=== PATIENT | male | born 1990 | race Caucasian/White ===

== ENCOUNTER 2020-07-30 10:36 | Emergency (ER) | payer SELFPAY ==
--- NOTE | ~2020-07-30 | US_ITS ---
EXAMINATION: US SCROTUM CLINICAL INFORMATION: Pain. Rule out torsion.. COMPARISON: None TECHNIQUE: A sonogram of the scrotum was performed assessing shah-scale appearance and color Doppler flow. Spectral Doppler analysis of the arterial and venous flow were performed in the testes bilaterally. FINDINGS: RIGHT: Right testicle measures 4.6 x 2.3 x 2.9 cm, volume 16 mL. No focal testicular parenchymal lesions are visualized. Spectral Doppler analysis of the arterial and venous flow is normal in the right testis. Right epididymal head is normal in size. No right hydrocele or varicocele is seen. Right epididymal Doppler flow is normal. LEFT: Left testicle measures 4.8 x 2.6 x 3 cm, volume 19 mL. No focal testicular parenchymal lesions are visualized. Spectral Doppler analysis of the arterial and venous flow is normal in the left testis. Left epididymal head is normal in size. No left hydrocele or varicocele is seen. Left epididymal Doppler flow is normal. US/US scrotum doppler IMPRESSION: Normal scrotal ultrasound. No evidence of torsion.
--- NOTE | ~2020-07-30 | US_ITS ---
EXAMINATION: US SCROTUM CLINICAL INFORMATION: Pain. Rule out torsion.. COMPARISON: None TECHNIQUE: A sonogram of the scrotum was performed assessing shah-scale appearance and color Doppler flow. Spectral Doppler analysis of the arterial and venous flow were performed in the testes bilaterally. FINDINGS: RIGHT: Right testicle measures 4.6 x 2.3 x 2.9 cm, volume 16 mL. No focal testicular parenchymal lesions are visualized. Spectral Doppler analysis of the arterial and venous flow is normal in the right testis. Right epididymal head is normal in size. No right hydrocele or varicocele is seen. Right epididymal Doppler flow is normal. LEFT: Left testicle measures 4.8 x 2.6 x 3 cm, volume 19 mL. No focal testicular parenchymal lesions are visualized. Spectral Doppler analysis of the arterial and venous flow is normal in the left testis. Left epididymal head is normal in size. No left hydrocele or varicocele is seen. Left epididymal Doppler flow is normal. US/US scrotum IMPRESSION: Normal scrotal ultrasound. No evidence of torsion.
[2020-07-30 10:43] VITALS: PULSE 97; RESP 16; TEMP 36.1; O2SAT 99; BMI 49.8
[2020-07-30 13:52] LABS: Glucose Urine UA NEG (NEG); Leukocyte Esterase Urine NEG (NEG); Nitrite Urine NEG (NEG); Specific Gravity - Urine >= 1.030 (1.005-1.025); Urine Blood NEG (NEG); Urine Ketones 15 MG/DL (NEG); Urine Protein NEG (NEG-TRACE)
[2020-07-30 13:57] LABS: Appearance Urine CLEAR; Color Urine YELLOW
--- NOTE | 2020-07-30 14:46 | ED_ITS ---
HPI - Male Genitourinary General Chief complaint: Urogenital-Male <ADILIA Kebede - Last Filed: 08/03/20 09:37> Stated complaint: testicle pain <ADILIA Kebede Last Filed: 08/03/20 09:37> Time Seen by Provider: 07/30/20 10:39 <ADILIA Kebede - Last Filed: 08/03/20 09:37> History of Present Illness HPI Narrative: Patient complains of right testicle pain mild for about 7 days, no discharge no burning with urination, no fever no nausea no abdominal pain no flank pain <ADILIA Kebede Last Filed: 08/03/20 09:37> Related Data Home medications: Previous Rx's Medication Instructions Recorded ibuprofen 600 mg PO Q6H PRN #20 tab 07/30/20 <ADILIA Kebede Last Filed: 08/03/20 09:37> Allergies/Adverse reactions: Allergies Allergy/AdvReac Type Severity Reaction Status Date / Time No Known Allergies Allergy Unverified 01/04/20 17:15 [No Known Allergies*] <ADILIA Kebede - Last Filed: 08/03/20 09:37> Review of Systems Review of Systems: Positive for right testicle pain Negatives are no fever no chills no dizziness no weakness no headache no anorexia no chest pain no shortness of breath no abdominal pain no dysuria no discharge no swelling no frequency of urination no flank pain no leg swelling <ADILIA Kebede Last Filed: 08/03/20 09:37> [facility] Past Medical History Source: nursing notes reviewed <ADILIA Kebede Last Filed: 08/03/20 09:37> Medical History: Medical History (Updated 07/31/20 @ 00:01 by Bebo Rios) Hypertension <ADILIA Kebede Last Filed: 08/03/20 09:37> Surgical History: Surgical History (Updated 07/30/20 @ 10:46 by Lucio Vilchis) H/O rhinoplasty <ADILIA Kebede - Last Filed: 08/03/20 09:37> Social History Social History: Social History Advance Directives: No Advance Directives Information Provided: Yes <ADILIA Kebede Last Filed: 08/03/20 09:37> Physical Exam Vital Signs: Vital Signs: Last Vital Signs Temp 97 F 07/30/20 10:43 Pulse 97 07/30/20 10:43 Resp 16 07/30/20 10:43 Pulse Ox 99 07/30/20 10:43 Body Mass Index 49.8 <ADILIA Kebede - Last Filed: 08/03/20 09:37> Vital Signs: Last Vital Signs Temp 97 F 07/30/20 10:43 Pulse 97 07/30/20 10:43 Resp 16 07/30/20 10:43 Pulse Ox 99 07/30/20 10:43 Body Mass Index 49.8 <Geovani Sevilla MD - Last Filed: 08/14/20 08:04> General appearance is no acute distress, cooperative A&O x3 The neck is supple The chest is clear to auscultation bilaterally Heart no murmur Abdomen soft nontender Genital exam there is no discharge there is no testicular swelling there is no skin wound or abscess no redness The right testicle posterior aspect is tender but there is no swelling There are no ulcerations no sores no herpetic lesions no rash of genital area Extremities no edema Skin no other rashes Neuro no focal deficits <ADILIA Kebede - Last Filed: 08/03/20 09:37> Course Course Course Narrative: Scrotal ultrasound did not show any torsion, no evidence of epididymitis no mass and was normal Urinalysis was normal Patient remains well appearing and comfortable throughout visit and is discharged and informed on not sure what the reason is for his pain but it does not appear to be dangerous or emergent and he can follow with urologist and return any time if worse <ADILIA Kebede - Last Filed: 08/03/20 09:37> I have reviewed the chart <Geovani Sevilla MD - Last Filed: 08/14/20 08:04> MDM - Male Genitourinary Lab Data Attestation: I reviewed the patient's lab results. <ADILIA Kebede - Last Filed: 08/03/20 09:37> Labs: Lab Results 07/30/20 07/30/20 Range/Units 13:39 13:39 Urine Color YELLOW Urine Appearance CLEAR Urine pH 6.0 (5.0-8.0) Ur Specific [place] >= 1.030 H (1.005-1.025) Urine Protein NEG (NEG-TRACE) MG/DL Urine Glucose (UA) NEG (NEG) MG/DL Urine Ketones 15 (NEG) MG/DL Urine Blood NEG (NEG) Urine Nitrite NEG (NEG) Ur Leukocyte Esterase NEG (NEG) Chlam trachomat DNA PCR NOT DETECTED (Not Detect.) N.gonorrhoeae DNA (PCR) NOT DETECTED (Not Detect.) <ADILIA Kebede - Last Filed: 08/03/20 09:37> Lab Results 07/30/20 07/30/20 Range/Units 13:39 13:39 Urine Color YELLOW Urine Appearance CLEAR Urine pH 6.0 (5.0-8.0) Ur Specific [place] >= 1.030 H (1.005-1.025) Urine Protein NEG (NEG-TRACE) MG/DL Urine Glucose (UA) NEG (NEG) MG/DL Urine Ketones 15 (NEG) MG/DL Urine Blood NEG (NEG) Urine Nitrite NEG (NEG) Ur Leukocyte Esterase NEG (NEG) Chlam trachomat DNA PCR NOT DETECTED (Not Detect.) N.gonorrhoeae DNA (PCR) NOT DETECTED (Not Detect.) <Geovani Sevilla MD - Last Filed: 08/14/20 08:04> Discharge Plan Discharge Clinical Impression: Right testicular pain <ADILIA Kebede - Last Filed: 08/03/20 09:37> Patient Disposition: Home, Self-Care <ADILIA Kebede - Last Filed: 08/03/20 09:37> Additional Instructions: Ultrasound and urine test did not show any dangerous or concerning cause of the pain Any part of the body can hurt sometimes at this point it does not seem to need any major treatment If pain continues follow with primary doctor and urologist for further evaluation If pain worsens or swelling or redness or any worse condition or any concerns return to the ER any time for recheck Use Motrin as needed <ADILIA Kebede - Last Filed: 08/03/20 09:37> Prescriptions: New ibuprofen 600 mg tablet 600 mg PO Q6H PRN (Reason: pain) Qty: 20 RF: 0 <ADILIA Kebede Last Filed: 08/03/20 09:37> Referrals: Luis Greene MD [Physician] - 2 days (Right testicular pain, no emergent cause found) <ADILIA Kebede - Last Filed: 08/03/20 09:37> Stand Alone Forms: Work/School Release <ADILIA Kebede - Last Filed: 08/03/20 09:37> Interventions: ED Discharge Assessment Last Done: 07/30/20 15:40 <ADILIA Kebede - Last Filed: 08/03/20 09:37> Discharge Date/Time: 07/30/20 15:41 <ADILIA Kebede - Last Filed: 08/03/20 09:37>
[2020-07-30 17:09] LABS: CT PCR NOT DETECTED (Not Detect.); NG PCR NOT DETECTED (Not Detect.)
== END 2020-07-30 15:41 | disposition home or self-care (01) ==
PROVIDERS: Physician Assistant Medical; Emergency Provider Emergency Medicine
DX: N50.811 Right testicular pain (principal); I10 Essential (primary) hypertension
CPT/HCPCS: 76870; 81003; 87491; 87591; 93975; 99283; 99284

== ENCOUNTER 2021-06-07 10:26 | Outpatient (REF) | payer BC, SELFPAY ==
[2021-06-07 10:52] LABS: Binax Internal Control QC Valid; Binax Now Covid-19 Ag Negative (Negative)
== END 2021-06-07 10:27 | disposition home or self-care (01) ==
LOC: HO.HMGCLDS 10:26
PROVIDERS: Visit Provider Physician Assistant Medical
DX: Z13.89 Encounter for screening for other disorder (principal)

== ENCOUNTER 2021-08-11 06:44 | Outpatient (REF) | payer BC, SELFPAY ==
[2021-08-11 12:27] LABS: Appearance Urine CLEAR; Color Urine YELLOW; Glucose Urine UA NEG (NEG); Leukocyte Esterase Urine NEG (NEG); Nitrite Urine NEG (NEG); PH 6.5 (5.0-8.0); Urine Blood NEG (NEG); Urine Ketones NEG (NEG); Urine Protein NEG (NEG-TRACE)
[2021-08-11 12:29] LABS: Alanine Aminotransferase 40 U/L (0-40); Albumin Level 4.6 g/dL (3.5-5.0); Alkaline Phosphatase 71 U/L (39-117); Anion Gap 11 (12-20); Aspartate Amino Transferase 25 U/L (5-37); Blood Urea Nitrogen 13 mg/dL (9-16); Calcium 9.5 mg/dL (8.4-10.2); Carbon Dioxide 29 mmol/L (22-29); Chloride 103 mmol/L (96-108); Cholesterol 227 mg/dL; Estimated Glomerular Filt Rate > 60; Glucose Fasting 118 mg/dL (60-99); HDL Cholesterol 34 mg/dL; Potassium 4.4 mmol/L (3.3-5.1); Sodium 139 mmol/L (135-145); Total Protein 7.9 g/dL (6.5-8.0); Triglycerides 407 mg/dL
[2021-08-11 12:32] LABS: TSH reflex Free T4 0.78 uIU/mL (0.32-4.0)
== END 2021-08-11 06:45 | disposition home or self-care (01) ==
LOC: HO.HMGCLDS 06:44
PROVIDERS: Visit Provider Nurse Practitioner Family
DX: Z00.00 Encounter for general adult medical examination without abnormal findings (principal)
CPT/HCPCS: 36415; 80053; 80061; 81003; 84443

== ENCOUNTER 2021-10-28 10:01 | Outpatient (REF) | payer BC, SELFPAY ==
[2021-10-28 10:48] LABS: COVID-19 Test Positive (Negative); IDNOW Serial# 9DB6401D
== END 2021-10-28 10:02 | disposition home or self-care (01) ==
LOC: HO.LAB 10:01
PROVIDERS: Visit Provider Internal Medicine
DX: Z20.822 Contact with and (suspected) exposure to COVID-19 (principal)
CPT/HCPCS: 87635; C9803

== ENCOUNTER 2022-02-18 06:04 | Outpatient (REF) | payer BC, SELFPAY ==
[2022-02-18 12:02] LABS: Appearance Urine Clear; Color Urine Yellow; Glucose Urine UA Negative (Negative); Leukocyte Esterase Urine Negative (Negative); Nitrite Urine Negative (Negative); PH 6.5 (5.0-9.0); Urine Blood Negative (Negative); Urine Ketones Negative (Negative); Urine Protein Negative (Neg-Trace)
[2022-02-18 12:03] LABS: MANUAL DIFF FLAG NO
[2022-02-18 12:04] LABS: Basophils Absolute Auto 0.1 X10*3/uL (0.0-0.2); Basophils Percent Auto 0.8 % (0-2); Eosinophils Absolute Auto 0.1 X10*3/uL (0.0-0.4); Eosinophils Percent Auto 1.8 % (0-4); Hematocrit 45.8 % (42.0-52.0); Hemoglobin 15.6 g/dl (14.0-18.0); Imm Gran Abs Auto 0.02 X10*3/uL (0.00-0.03); Imm Gran Pct Auto 0.3 % (0.0-0.4); Lymphocytes Absolute Auto 2.1 X10*3/uL (1.2-4.9); Mean Corpuscular HGB Conc 34.1 g/dl (31.0-36.0); Mean Corpuscular Hemoglobin 28.9 pg (27.0-33.0); Mean Platelet Volume 10.4 fL (9.4-12.4); Monocytes Absolute Auto 0.7 X10*3/uL (0.1-1.2); Monocytes Percent Auto 10.3 % (2-11); Neutrophils Percent Auto 56.8 % (45-73); Platelet Count 209 X10*3/uL (160-400); Red Blood Count 5.39 X10*6/uL (4.60-5.80); Red Cell Distribution Width 13.4 % (11.0-16.0); White Blood Count 7.1 X10*3/uL (4.8-10.8)
[2022-02-18 12:51] LABS: Alanine Aminotransferase 33 U/L (0-40); Albumin Level 4.5 g/dL (3.5-5.0); Alkaline Phosphatase 63 U/L (39-117); Anion Gap 15 (12-20); Aspartate Amino Transferase 26 U/L (5-37); Bilirubin Total 0.4 mg/dL (0.0-1.0); Blood Urea Nitrogen 15 mg/dL (9-16); Calcium 9.1 mg/dL (8.4-10.2); Carbon Dioxide 26 mmol/L (22-29); Chloride 102 mmol/L (96-108); Cholesterol 220 mg/dL; Estimated Glomerular Filt Rate > 60; Glucose Fasting 116 mg/dL (60-99); HDL Cholesterol 39 mg/dL; LDL Cholesterol Calculated 117 mg/dl; Sodium 139 mmol/L (135-145); Total Protein 7.4 g/dL (6.5-8.0); Triglycerides 322 mg/dL
== END 2022-02-18 06:05 | disposition home or self-care (01) ==
LOC: HO.HMGCLDS 06:04
PROVIDERS: PCP Nurse Practitioner Family; Visit Provider Nurse Practitioner Family
DX: F33.9 Major depressive disorder, recurrent, unspecified (principal)
CPT/HCPCS: 36415; 80053; 80061; 81003; 84443; 85025

== ENCOUNTER 2023-01-11 12:29 | Outpatient (AMB) | payer BC, SELFPAY ==
[2023-01-11 12:38] VITALS: BP 126/80; PULSE 110; TEMP 36.4; O2SAT 98; BMI 44.6
--- NOTE | 2023-01-11 12:38 | MHC.OFFWIV ---
Intake Vital Signs 01/11/23 12:38 Height 5 ft 9 in Weight 136.985 kg BMI 44.6 BP 126/80 Blood Pressure Location Rt brachial Position Sitting Pulse 110 H Pulse Source Pulse Oximeter Temp 97.6 F Temp Source Temporal Artery Scan Pulse Oximetry (%) 98 Intake Visit Reasons: EST/cold symptoms (masked lobby) Intake Note: pt is here for c/o cold symptoms such as cough, fatigue, sinus, patient would like note for work Patient Tobacco Use Status: Former Tobacco user Allergies No Known Allergies [No Known Allergies*] Allergy (Verified 01/11/23 12:39) Do you need a note to return to daycare/school/sports/work: Yes HPI EST/cold symptoms (masked lobby) HPI Details Patient presents with 3 days of sinus congestion, cough, fatigue and feeling as if he had a fever. Symptoms started on 01/09/2023 he called out of work for the last 3 days he does feel as if his symptoms are starting to improve today. He needs a note for work. No sick contacts at home he did do a home test for COVID which was negative. Denies headache, GI symptoms, chest pain, shortness of breath, difficulty breathing, productive cough, fever. [facility] Medical History Hypertension Surgical History H/O rhinoplasty Family History Brother Substance use disorder Paternal Grandfather Substance use disorder Social History Housing: House Patient Tobacco Use Status: Former Tobacco user Years Smoked: 2 years as of July e-Cigarette/Vaping Use: Never Used Second Hand Smoke Exposure: No service: No Current occupational status: employed Current occupation: [employer] Current occupational exposures/hazards: Yes Cognitive needs: No Hearing needs: No Vision needs: No Review of Systems Const Reports as per HPI and Reports no additional complaints ENT Reports no additional complaints and Reports as per HPI Card Reports as per HPI and Reports no additional complaints Resp Reports as per HPI and Reports no additional complaints GI Reports as per HPI and Reports no additional complaints Musc Reports no additional complaints and Reports as per HPI Skin/Breast Denies lesions Neuro Reports no additional complaints and Reports as per HPI Physical Exam Vital Signs: Last Vital Signs Temp 97.6 F 01/11/23 12:38 Pulse 110 H 01/11/23 12:38 BP 126/80 01/11/23 12:38 Pulse Ox 98 01/11/23 12:38 BMI result Body Mass Index 44.6 Const General: cooperative, comfortable and no acute distress Orientation/consciousness: patient oriented x3 HEENT Ears: external ears normal and TM's normal bilaterally Face and sinus: Yes normal facial exam and Yes sinuses nontender Mouth: Normal oral and palatal mucosa present Throat: Yes posterior oropharynx normal Resp Effort & Inspection: normal respiratory effort Auscultation: clear to auscultation bilaterally Cardio Rate: regular rate Rhythm: regular rhythm Heart sounds: S1 normal heart sound present and S2 normal heart sound present Neuro General: patient oriented x3 Assessment & Plan Assessment & Plan (1) Upper respiratory tract infection: Code(s): J06.9 - Acute upper respiratory infection, unspecified Qualifiers: URI type: acute nasopharyngitis (common cold) Qualified Code(s): J00 - Acute nasopharyngitis [common cold] Plan Advised patient to continue self-care, rest, fluids symptomatic treatment as needed. Have collected a viral swab to rule out COVID will report results as available. I have given him a work note he can return to work if viral swab is negative and symptoms have improved tomorrow. Return to clinic with any concerns. Orders: Orders SARS-CoV2/FLU/RSV 01/11/23 B34.9 - Viral infection, unspecified Coding Level of Care Code Est Pt Level 3 (08814) Diagnoses Acute nasopharyngitis J00 URI type: acute nasopharyngitis (common cold)
== END 2023-01-11 13:41 | disposition home or self-care (01) ==
PROVIDERS: PCP Nurse Practitioner Family; Visit Provider Physician Assistant
DX: J00 Acute nasopharyngitis [common cold] (principal)
CPT/HCPCS: 99213

== ENCOUNTER 2023-01-11 13:09 | Outpatient (REF) | payer BC, SELFPAY ==
[2023-01-11 18:09] LABS: Influenza A PCR NEGATIVE (Negative); Influenza B PCR NEGATIVE (Negative); Resp Syncy Virus RNA Qual PCR NEGATIVE (Negative); SARS COV2 PCR INHOUSE NEGATIVE (Negative)
== END 2023-01-11 13:10 | disposition home or self-care (01) ==
LOC: HO.LAB 13:09
PROVIDERS: Visit Provider Physician Assistant
DX: B34.9 Viral infection, unspecified (principal); Z20.822 Contact with and (suspected) exposure to COVID-19; Z20.828 Contact with and (suspected) exposure to other viral communicable diseases
CPT/HCPCS: 0241U

== ENCOUNTER 2023-05-10 09:24 | Outpatient (AMB) | payer BC, SELFPAY ==
--- NOTE | 2023-05-10 09:26 | A.OFFPC_ITS ---
Vital Signs 05/10/23 09:30 Height 5 ft 9 in Weight 301 lb BMI 44.4 BP 122/80 Blood Pressure Location Rt brachial Position Sitting Pulse 78 Pulse Source Pulse Oximeter Pulse Oximetry (%) 98 Oxygen Delivery Method Room Air Intake Visit Reasons: Refill for Sertraline Intake Note: Patient here for depression F/U. Pt states Depression has been a lot better. Allergies No Known Allergies [No Known Allergies*] Allergy (Verified 05/10/23 09:31) Medication List - Last Reconciled 05/10/23 by YULISA Eaton buspirone 30 mg PO BID 30 days sertraline 150 mg (1.5 x 100 mg) PO DAILY Tobacco use date assessed: 05/10/23 Dental Screening Dental Screen Date: 05/10/23 Did you have a dental visit in the last 12 months?: No Did you have a dental problem in the last 6 months where you did not have access to dental care?: No Was dental information given to patient?: Patient has dentist HPI Refill for Sertraline HPI Details Anxiety/depression: Pt is currently taking buspirone 30mg bid and sertraline 150mg. He reports doing well on these meds. Denies any SI and HI. HTN: Blood pressure is stable. Denies chest pain, shortness of breath, headache, dizziness, and blurred vision. Dyslipidemia: Will order labs. [facility] Medical History Hypertension Surgical History H/O rhinoplasty Family History Brother Substance use disorder Paternal Grandfather Substance use disorder Social History Housing: House Patient Tobacco Use Status: Former Tobacco user Years Smoked: 2 years as of July e-Cigarette/Vaping Use: Never Used Second Hand Smoke Exposure: No service: No Current occupational status: employed Current occupation: [employer] Current occupational exposures/hazards: Yes Cognitive needs: No Hearing needs: No Vision needs: No Questionnaire PHQ-9 Over the last 2 weeks, how often have you been bothered by any of the following problems? 1. Little interest or pleasure in doing things: several days 2. Feeling down, depressed, or hopeless: several days 3. Trouble falling or staying asleep, or sleeping too much: more than half the days 4. Feeling tired or having little energy: several days 5. Poor appetite or overeating: not at all 6. Feeling bad about yourself - or that you are a failure or have let yourself or your family down: several days 7. Trouble concentrating on things, such as reading the newspaper or watching television: not at all 8. Moving or speaking so slowly that other people could have noticed. Or the opposite - being so fidgety or restless that you have been moving around a lot more than usual: several days 9. Thoughts that you would be better off or of hurting yourself in some way: not at all Total score: 7 Depression Screening Interpretation: Negative Depression Screening Done: Yes 87139 - PHQ-9 Billing: Yes Source: Developed by Drs. Bryan Olmos, Amarilys Cosme, Gabriel Field and colleagues, with an educational frandy from [employer]. Thrive Questionnaire Date Thrive assessed: 05/22/21 I am a: Patient What is your living situation today?: I have a steady place to live Within the past 12 months, did the food you bought not last and you didn't have the money to get more?: Never true Within the past 12 months, did you worry whether your food would run out before you got money to buy more?: Never true Do you have trouble paying for medicines?: No Do you have trouble getting transportation to medical appointments?: No Do you have trouble paying your heating and electricity bill?: No Do you have trouble taking care of your child, family member or friend?: No Are you currently unemployed and looking for a job?: No Are you interested in more education?: No Please select the resources that you would like help with: Food THRIVE Score: 0 AUDIT C Alcohol Use Questionnaire (AUDIT-C) 1. How often do you have a drink containing alcohol?: 4 or more times a week 2. How many drinks containing alcohol do you have on a typical day when you are drinking?: 3 or 4 3. How often do you have six or more drinks on one occasion?: Monthly Total Score: 7 BRICE-7 AMB Questionnaire BRICE-7 Date BRICE - 7 assessed: 05/10/23 Feeling nervous, anxious, or on edge: 1 = Several days Not being able to stop or control worryin = Several days Worrying too much about different things: 1 = Several days Trouble relaxin = More than half the days Being so restless that it is hard to sit still: 1 = Several days Becoming easily annoyed or irritable: 1 = Several days Feeling afraid as if something awful might happen: 1 = Several days Total BRICE-7 score (0-4 normal; 5-9 mild; 10-14 moderate; 15-21 severe): 8 Source: Developed by Drs. Bryan Olmos, Amarilys Cosme, Gabriel Field and colleagues, with an educational frandy from [employer]. Review of Systems Const Reports as per HPI Physical exam (Primary Care) Vital Signs: Last Vital Signs Pulse 78 05/10/23 09:30 BP 122/80 05/10/23 09:30 Pulse Ox 98 05/10/23 09:30 Oxygen Delivery Method Room Air 05/10/23 09:30 BMI result Body Mass Index 44.4 Tobacco/Smoking Status: Tobacco use Status Tobacco use date assessed 05/10/23 05/10/23 09:34 Patient Tobacco Use Status Former Tobacco user 05/10/23 09:28 e-Cigarette/Vaping Use Never Used 05/10/23 09:28 PHQ-9: PHQ-9 Score PHQ-9: Total score 7 05/10/23 09:55 Depression Screening Interpretation: Negative Thrive Assessment: Date of Thrive Assessment Date Thrive assessed 05/22/21 05/10/23 09:28 Const General: cooperative Nutritional Appearance: obese morbidly obese Orientation/consciousness: patient oriented x3 Resp Effort & Inspection: normal respiratory effort Auscultation: clear to auscultation bilaterally Cardio Rate: regular rate Rhythm: regular rhythm Heart sounds: S1 normal heart sound present and S2 normal heart sound present Neuro General: patient oriented x3 Psych Appearance: grossly normal Mental Status: mental status grossly normal Speech and movement: Normal speech and movement present Affect: normal affect Attitude: cooperative Thought process: Normal thought process present Thought content: Normal thought content present Insight: Good insight present (Psych) Judgement: Good judgement present (Psych) Assessment and Plan Assessment & Plan (1) Dyslipidemia: Code(s): E78.5 - Hyperlipidemia, unspecified Plan: Labs ordered (2) Depression, major, recurrent: Code(s): F33.9 - Major depressive disorder, recurrent, unspecified Plan: Continue current meds Plan The patient agreed to the use of a biomedical equipment support specialist for this encounter. Scribed for BELINDA Ibarra- by Jodi Mejía biomedical equipment support specialist, on 05/10/2023 at 09:45 EST. Orders: Orders Complete Blood Count Auto Diff Today E78.5 - Hyperlipidemia, unspecified, F33.9 - Major depressive disorder, recurrent, unspecified UA CC w/rflx Micro + Cult Today E78.5 - Hyperlipidemia, unspecified, F33.9 - Major depressive disorder, recurrent, unspecified Lipid Panel Today E78.5 - Hyperlipidemia, unspecified, F33.9 - Major depressive disorder, recurrent, unspecified Comprehensive Taylor. Panel Fast Today E78.5 - Hyperlipidemia, unspecified, F33.9 - Major depressive disorder, recurrent, unspecified TSH reflex Free T4 Today E78.5 - Hyperlipidemia, unspecified, F33.9 - Major depressive disorder, recurrent, unspecified Coding Level of Care Code Est Pt Level 3 (72009) Diagnoses Dyslipidemia E78.5 Depression, major, recurrent F33.9
[2023-05-10 09:30] VITALS: BP 122/80; PULSE 78; O2SAT 98; BMI 44.4
== END 2023-05-10 11:12 | disposition home or self-care (01) ==
PROVIDERS: PCP Nurse Practitioner Family; Visit Provider Nurse Practitioner Family
DX: E78.5 Hyperlipidemia, unspecified (principal); F33.9 Major depressive disorder, recurrent, unspecified
CPT/HCPCS: 99213

== ENCOUNTER 2023-06-11 14:15 | Day surgery (SDC) | payer BC, SELFPAY ==
--- NOTE | ~2023-06-11 | CT_ITS ---
EXAMINATION: CT ABDOMEN AND PELVIS WITHOUT CONTRAST CLINICAL INFORMATION: Lower abdominal pain. COMPARISON: None available. TECHNIQUE: Multidetector volumetric imaging was performed from the superior aspect of the liver through the pubic symphysis. Sagittal and coronal reformatted images were obtained on the technologist's workstation. This CT examination was performed using dose optimization techniques as appropriate, variously including the following: *Automated exposure control *Adjustment of mA and/or kV according to patient size (this includes techniques or standardized protocols for targeted exams where dose is matched to indication/reason for exam; i.e. extremities or head) *Use of iterative reconstruction technique DLP: 1182 mGy-cm FINDINGS: LUNG BASES: The visualized lung bases are unremarkable. LIVER, GALLBLADDER, AND BILIARY TREE: The noncontrast liver is normal in size and contour. No biliary ductal dilatation is present. The gallbladder is mildly contracted. PANCREAS: Unremarkable. SPLEEN: Unremarkable. ADRENAL GLANDS: Unremarkable. KIDNEYS AND URETERS: The kidneys are normal in size, shape, and attenuation. No hydronephrosis, hydroureter, or calculi seen. No perinephric stranding. BLADDER: Decompressed. GASTROINTESTINAL TRACT: The appendix measures up to 10 mm. There is mild periappendiceal stranding. No small bowel obstruction. ABDOMINAL WALL: Small fat-containing umbilical hernia. LYMPH NODES: No bulky lymphadenopathy. VASCULAR: Normal caliber. PELVIC VISCERA: Unremarkable. OSSEOUS STRUCTURES: No destructive bone lesions. CT/CT abdomen pelvis wo IV con IMPRESSION: Finding suggestive of early acute appendicitis.
[2023-06-11 14:24] VITALS: BP 172/87; PULSE 98; RESP 17; TEMP 36.6; O2SAT 98; BMI 45.0
--- NOTE | 2023-06-11 14:24 | ED.ABDPAIN ---
HPI - Abdominal Pain General Chief Complaint: Abdominal Pain Stated Complaint: Low Abd Pain Cramping X 2 Days Time Seen by Provider: 06/11/23 19:32 History of Present Illness HPI narrative: 32 y/o M patient; PMH HTN, HLD, depression, obesity; presents from home with report of three days of lower abdominal pain associated with cramping sensation and bloating. States the pain is worse leading up to a bowel movement. Denies prior abdominal surgeries. Denies: fever or chills, SOB, chest pain, vomiting, diarrhea, dysuria, hematuria. Related Data Previous Rx's Medication Instructions Recorded buspirone 30 mg tablet 30 mg PO BID 30 days #60 tabs 04/28/23 sertraline 100 mg tablet 150 mg (1.5 x 100 mg) PO DAILY 04/28/23 #135 tabs Allergies Allergy/AdvReac Type Severity Reaction Status Date / Time No Known Allergies Allergy Verified 06/11/23 14:24 [No Known Allergies*] Review of Systems Review of Systems Yes all other systems are reviewed and are negative PMFSH Past Medical History Attestation statement: The following information was validated with the patient. Source: old records reviewed Medical History Hypertension Surgical History H/O rhinoplasty Family History Family History Brother Substance use disorder Paternal Grandfather Substance use disorder Social History Social History Housing: House Alcohol intake: current Alcohol intake frequency: a few times a week Alcohol type: hard liquor Patient Tobacco Use Status: Former Tobacco user Years Smoked: 2 years as of July Smoked in Last 30 Days: No e-Cigarette/Vaping Use: Never Used Second Hand Smoke Exposure: No Use of substances other than those prescribed or required for medical reasons: Yes Substance Use Type: Marijuana Substance Use Frequency: Chronic Longstanding Advance Directives: No Advance Directives Information Provided: No service: No Current occupational status: employed Current occupation: [employer] Current occupational exposures/hazards: Yes Cognitive needs: No Hearing needs: No Vision needs: No Physical Exam ED Vital Signs: Vital Signs - 24 hr 06/11/23 14:24 06/11/23 19:56 06/11/23 20:30 Temperature 98 F 97.8 F 98.1 F Pulse Rate 98 83 74 Respiratory Rate 17 18 16 Blood Pressure 172/87 H 146/91 H 149/86 H Pulse Oximetry 98 97 99 Oxygen Delivery Method Room Air Room Air Room Air BMI result Body Mass Index 45.0 Patient is afebrile and hemodynamically stable Const General: cooperative and no acute distress HENMT Head: Yes atraumatic Eyes General: appearance normal, both eyes and all related structures Pupils: Equal, round and reactive pupils present EOM: EOMs intact bilaterally Neck Neck: Yes normal visual inspection, Yes full ROM, Yes supple and No tender Chest Chest palpation & inspection: normal inspection of the chest and normal palpation of entire chest wall Resp Effort & Inspection: normal respiratory effort, able to speak in complete sentences and no respiratory distress Auscultation: clear to auscultation bilaterally Cardio Rate: regular rate Rhythm: regular rhythm Peripheral pulses: Peripheral pulses 2+ throughout GI Other: Obese abdomen, RLQ abdominal discomfort Inspection: Yes normal to inspection, No Abdominal wall edema and No distended Palpation (GI): Soft to palpation, not firm, Tenderness to palpation present (GI), no guarding and not rigid Auscultation: normal bowel sounds General: Yes no CVA tenderness Back/Spine/Pelvis Back: no CVA tenderness Neuro Cranial nerves: Yes Equal, round and reactive pupils present Course Course Course Narrative: RME:?32 yo male w/ hx of MDD, HTN here w/ lower abdominal pain/ cramping/ bloating x3 days. abd pain intensity increases prior to going to the bathroom and improves w/ passing BM. does not worsen w/ eating. Last BM this morning. Endorses difficulty passing gas. Denies nausea vomiting, hematochezia, melena, bright red blood per rectum, dysuria, hematuria labs, ua, imaging ordered Full HPI, ROS and PE to be performed by the primary ED provider. Reevaluation(s) Reevaluation #1: Patient is afebrile and hemodynamically stable. Reviewed triage work up. CT Abdomen/Pelvis was ordered by triage provider without contrast. Noted concern for early acute appendicitis. Surgery consultation requested. Patient provided 1L IVF and Dilaudid 0.5mg IV for pain control. Surgery is requesting observation overnight given patient has had three days of symptoms and is without fever or leukocytosis. Explained to patient surgical recommendations and patient is agreeable to spending the night in the emergency department. Plan: Transition care to oncoming physician Medical Decision Making Lab Data 06/11/23 15:00 06/11/23 15:00 Labs: Lab Results 06/11/23 Range/Units 15:00 WBC 7.2 (4.8-10.8) X10*3/uL RBC 5.14 (4.60-5.80) X10*6/uL Hgb 15.5 (14.0-18.0) g/dl Hct 43.3 (42.0-52.0) % MCV 84.2 (80.0-98.0) fL MCH 30.2 (27.0-33.0) pg MCHC 35.8 (31.0-36.0) g/dl RDW 12.8 (11.0-16.0) % Plt Count 211 (160-400) X10*3/uL MPV 10.4 (9.4-12.4) fL Immature Gran % (Auto) 0.4 (0.0-0.4) % Neut % (Auto) 52.7 (45-73) % Lymph % (Auto) 33.2 (20-40) % [place] % (Auto) 6.8 (2-11) % Eos % (Auto) 6.2 H (0-4) % Baso % (Auto) 0.7 (0-2) % Lymph # (Auto) 2.4 (1.2-4.9) X10*3/uL [place] # (Auto) 0.5 (0.1-1.2) X10*3/uL Eos # (Auto) 0.5 H (0.0-0.4) X10*3/uL Baso # (Auto) 0.1 (0.0-0.2) X10*3/uL Abs Immat Gran (auto) 0.03 (0.00-0.03) X10*3/uL Absolute Neuts (auto) 3.8 (2.0-8.3) x10*3/uL Absolute Nucleated RBC 0.000 (0.0-0.012) X10*3/uL Nucleated RBC % (auto) 0.0 (0.0-0.2) /100WBC Sodium 138 (135-145) mmol/L Potassium 4.1 (3.3-5.1) mmol/L Chloride 106 (96-108) mmol/L Carbon Dioxide 21 L (22-29) mmol/L Anion Gap 15 (12-20) BUN 16 (9-16) mg/dL Creatinine 0.83 (0.5-1.4) mg/dL Estim Creat Clear Calc 178.3 Estimated GFR > 60 Random Glucose 95 (60-115) mg/dL Calcium 9.2 (8.4-10.2) mg/dL Magnesium 2.3 (1.6-2.6) mg/dL Total Bilirubin 0.3 (0.0-1.0) mg/dL AST 24 (5-37) U/L ALT 28 (0-40) U/L Alkaline Phosphatase 72 (39-117) U/L Total Protein 8.4 H (6.5-8.0) g/dL Albumin 4.6 (3.5-5.0) g/dL Lipase 18 (8-78) U/L Urine Color Yellow Urine Appearance Clear Urine pH 6.0 (5.0-9.0) Ur Specific [place] 1.020 (1.005-1.025) Urine Protein Negative (Neg-Trace) mg/dL Urine Glucose (UA) Negative (Negative) mg/dL Urine Ketones Negative (Negative) mg/dL Urine Blood Negative (Negative) Urine Nitrite Negative (Negative) Ur Leukocyte Esterase Negative (Negative) Medications Administered Generic Name Dose Route Start Last Admin Trade Name Fresrikanth PRN Reason Stop Dose Admin Sodium Chloride 1,000 mls @ 999 mls/hr 06/11/23 20:00 06/11/23 20:29 Ns IV 06/11/23 21:00 999 mls/hr .Q1H1M SAHIL Administration Discontinued Medications Generic Name Dose Route Start Last Admin Trade Name Freq PRN Reason Stop Dose Admin Hydromorphone HCl 0.5 mg 06/11/23 19:48 06/11/23 20:29 Hydromorphone Hcl 0.5 Mg/0.5 Ml Syringe IVPUSH 06/11/23 19:49 0.5 mg ONCE ONE Administration Protocol Discharge Plan Discharge Clinical Impression: Acute appendicitis Patient Disposition: Still a Patient Prescriptions: No Action buspirone 30 mg tablet 30 mg PO BID 30 Days Qty: 60 2RF sertraline 100 mg tablet 150 mg PO DAILY Qty: 135 0RF Rx Instructions: Schedule next PCP appt for more refills
[2023-06-11 15:09] LABS: MANUAL DIFF FLAG NO
[2023-06-11 15:10] LABS: Basophils Absolute Auto 0.1 X10*3/uL (0.0-0.2); Basophils Percent Auto 0.7 % (0-2); Eosinophils Absolute Auto 0.5 X10*3/uL (0.0-0.4); Eosinophils Percent Auto 6.2 % (0-4); Hematocrit 43.3 % (42.0-52.0); Hemoglobin 15.5 g/dl (14.0-18.0); Imm Gran Abs Auto 0.03 X10*3/uL (0.00-0.03); Imm Gran Pct Auto 0.4 % (0.0-0.4); Lymphocytes Absolute Auto 2.4 X10*3/uL (1.2-4.9); Lymphocytes Percent Auto 33.2 % (20-40); Mean Corpuscular HGB Conc 35.8 g/dl (31.0-36.0); Mean Corpuscular Hemoglobin 30.2 pg (27.0-33.0); Mean Corpuscular Volume 84.2 fL (80.0-98.0); Mean Platelet Volume 10.4 fL (9.4-12.4); Monocytes Absolute Auto 0.5 X10*3/uL (0.1-1.2); Monocytes Percent Auto 6.8 % (2-11); Neutrophils Absolute Auto 3.8 x10*3/uL (2.0-8.3); Neutrophils Percent Auto 52.7 % (45-73); Platelet Count 211 X10*3/uL (160-400); Red Blood Count 5.14 X10*6/uL (4.60-5.80); Red Cell Distribution Width 12.8 % (11.0-16.0); White Blood Count 7.2 X10*3/uL (4.8-10.8)
[2023-06-11 15:14] LABS: Appearance Urine Clear; Color Urine Yellow; Glucose Urine UA Negative (Negative); Leukocyte Esterase Urine Negative (Negative); Nitrite Urine Negative (Negative); Urine Blood Negative (Negative); Urine Ketones Negative (Negative); Urine Protein Negative (Neg-Trace)
[2023-06-11 15:40] LABS: Alanine Aminotransferase 28 U/L (0-40); Albumin Level 4.6 g/dL (3.5-5.0); Alkaline Phosphatase 72 U/L (39-117); Anion Gap 15 (12-20); Aspartate Amino Transferase 24 U/L (5-37); Bilirubin Total 0.3 mg/dL (0.0-1.0); Blood Urea Nitrogen 16 mg/dL (9-16); Calcium 9.2 mg/dL (8.4-10.2); Carbon Dioxide 21 mmol/L (22-29); Chloride 106 mmol/L (96-108); Creatinine Clr Calc Pharmacy 178.3; Estimated Glomerular Filt Rate > 60; Glucose Random 95 mg/dL (60-115); Lipase 18 U/L (8-78); Magnesium 2.3 mg/dL (1.6-2.6); Potassium 4.1 mmol/L (3.3-5.1); Sodium 138 mmol/L (135-145); Total Protein 8.4 g/dL (6.5-8.0)
[2023-06-11 19:56] VITALS: BP 146/91; PULSE 83; RESP 18; TEMP 36.6; O2SAT 97
[2023-06-11] MEDS: HYDROmorphone HCl 0.5 MG/0.5 ML SYRINGE IVPUSH (20:29)
[2023-06-11] MEDS: 0.9 % Sodium Chloride 1,000 ML 999 ML IV (20:29)
[2023-06-11 20:30] VITALS: BP 149/86; PULSE 74; RESP 16; TEMP 36.7; O2SAT 99
[2023-06-11] MEDS: Lactated Ringers 1,000 ML 150 ML IVCONT (23:11)
[2023-06-11] MEDS: Piperacillin Sodium/Tazobactam 4.5 GM in 0.9 % Sodium Chloride 100 ML IV (23:12)
[2023-06-11 23:40] VITALS: BP 141/92; PULSE 56; RESP 16; TEMP 36.4; O2SAT 98
[2023-06-12] MEDS: HYDROmorphone HCl 1 MG/ML SYRINGE IVPUSH (00:59)
--- NOTE | 2023-06-12 01:45 | PC.NURSE ---
Pt medicated for pain/abdominal discomfort. Resting in bed, IV fluids running, call dillon within reach.
[2023-06-12] MEDS: Lactated Ringers 1,000 ML 150 ML IVCONT (05:29)
[2023-06-12] MEDS: Piperacillin Sodium/Tazobactam 4.5 GM in 0.9 % Sodium Chloride 100 ML IV (05:29)
[2023-06-12 06:12] VITALS: BP 163/89; RESP 18; TEMP 36.6; O2SAT 98
[2023-06-12] MEDS: Ketorolac Tromethamine 30 MG/ML VIAL IVPUSH (07:08)
--- NOTE | 2023-06-12 07:14 | PC.NURSE ---
pt reports improvement in abd pain to 0/10, reports headache at this time 5/10. pt medicated per JUN, denies any other complaints at this time
--- NOTE | 2023-06-12 07:43 | PC.NURSE ---
pt reports last oral intake was soup at around noon yesterday 06/11. no fluid intake since then as well.
--- NOTE | 2023-06-12 08:14 | PM.HPGS ---
History of Present Illness History of Present Illness Date of Service: 06/12/23 Chief complaint: Low Abd Pain Cramping X 2 Days Narrative: Jimmy Muñoz is a 32 year old male presents with a proximally 2 day history of progressively worsening lower abdominal pain. He has never had such symptoms before. He has had some nausea. Denies any diarrhea or loose stool. No sick contacts. He has had no foreign travel. Chart was reviewed patient evaluated PMF Past Medical History Medical History Hypertension Family History Family History Brother Substance use disorder Paternal Grandfather Substance use disorder Surgical History Surgical History H/O rhinoplasty Social History Social History Housing: House Alcohol intake: current Alcohol intake frequency: a few times a week Alcohol type: hard liquor Patient Tobacco Use Status: Former Tobacco user Years Smoked: 2 years as of July Smoked in Last 30 Days: No e-Cigarette/Vaping Use: Never Used Second Hand Smoke Exposure: No Use of substances other than those prescribed or required for medical reasons: Yes Substance Use Type: Marijuana Substance Use Frequency: Chronic Longstanding Advance Directives: No Advance Directives Information Provided: No service: No Current occupational status: employed Current occupation: [employer] Current occupational exposures/hazards: Yes Cognitive needs: No Hearing needs: No Vision needs: No Meds Allergies Allergy/AdvReac Type Severity Reaction Status Date / Time No Known Allergies Allergy Verified 06/11/23 14:24 [No Known Allergies*] Active Medications: Current Medications Hydromorphone HCl (Hydromorphone Hcl 1 Mg/Ml Syringe) 1 mg IVPUSH Q4H PRN; Protocol PRN Reason: Pain, Severe (Pain Scale 7-10) Lactated Ringer's (Lr) 1,000 mls @ 150 mls/hr IVCONT .Q6H40M SAHIL Last Admin: 06/12/23 05:29 Dose: 150 mls/hr Piperacillin Sod/Tazobactam (Sod 4.5 gm/ Sodium Chloride) 100 mls @ 200 mls/hr IV Q6H SAHIL Last Infusion: 06/12/23 06:45 Dose: Infused Physical Exam Vital Signs: Vital Signs: Last Vital Signs Temp 97.8 F 06/12/23 06:12 Pulse 56 06/11/23 23:40 Resp 18 06/12/23 06:12 BP 163/89 H 06/12/23 06:12 Pulse Ox 98 06/12/23 06:12 O2 Del Method Room Air 06/12/23 06:12 BMI result Body Mass Index 45.0 Const: Other: Very corpulent male Chest: Other: Chest breath sounds bilaterally, HS 1 in 2 GI: Other: Marked right lower quadrant deep tenderness. Remainder abdomen benign. Very large abdomen. Results Results Labs: Short CBC 06/11/23 Range/Units 15:00 WBC 7.2 (4.8-10.8) X10*3/uL Hgb 15.5 (14.0-18.0) g/dl Hct 43.3 (42.0-52.0) % Plt Count 211 (160-400) X10*3/uL BMP 06/11/23 15:00 Sodium 138 Potassium 4.1 Chloride 106 Carbon Dioxide 21 L BUN 16 Creatinine 0.83 Calcium 9.2 Liver Function 06/11/23 Range/Units 15:00 Total Bilirubin 0.3 (0.0-1.0) mg/dL AST 24 (5-37) U/L ALT 28 (0-40) U/L Alkaline Phosphatase 72 (39-117) U/L Albumin 4.6 (3.5-5.0) g/dL Urine 06/11/23 Range/Units 15:00 Urine Color Yellow Urine Appearance Clear Urine pH 6.0 (5.0-9.0) Ur Specific [place] 1.020 (1.005-1.025) Urine Protein Negative (Neg-Trace) mg/dL Urine Glucose (UA) Negative (Negative) mg/dL Assessment and Plan (1) Acute appendicitis: Status: Acute Plan Clinical exam and CT scan consistent with early appendicitis. Risks, benefits, alternatives of laparoscopic possible open cholecystectomy reviewed with the patient included but not limited to bleeding, infection, numbness, pain, scarring, bowel injury or leak and the patient wishes to proceed. All questions answered. Arrangements were made for this. Quality Stroke Does the patient have a stroke diagnosis?: No VTE Prior VTE?: No VTE Risk Level:: Surgical - low VTE Device Contraindication: N/A - Device Ordered VTE Drug Contraindication: N/A - Med Ordered Procedures Date of Service Date of Service: 06/12/23
--- NOTE | 2023-06-12 08:58 | PHA.MEDREC ---
Pharmacy Consult ? Medication Reconciliation Pharmacy has completed the medication reconciliation. Spoke to Carol ([phone]) to confirm meds since patient is in surgery.
[2023-06-12 09:56] VITALS: BP 160/99; PULSE 122; RESP 16; TEMP 36.9; O2SAT 95
[2023-06-12 10:01] VITALS: BP 175/91; PULSE 94; RESP 16; O2SAT 95
[2023-06-12 10:06] VITALS: BP 152/102; PULSE 103; RESP 16; O2SAT 94
--- NOTE | 2023-06-12 10:09 | P.OP_ITS ---
Operative Note Operative Note Date of Service: 06/12/23
--- NOTE | 2023-06-12 10:10 | P.OP_ITS ---
Operative Note Operative Note Date of Service: 06/12/23 Narrative: Preoperative diagnosis: [] Acute appendicitis Postop diagnosis: [] The same Procedure [] laparoscopic appendectomy Surgeon: [] [employer] Director: [] Type of Anesthesia: [] General Indication for surgery: [ Early acute appendicitis. No gross evidence of perforation Findings: []. Very corpulent abdomen Patient was brought to the Room, placed on the operative table in supine position, after adequate level of general anesthesia was induced, the patient's abdomen which is very corpulent was prepped and draped in usual sterile fashion. Using a supraumbilical curvilinear incision, Shaffer technique was used to in insufflate the abdominal cavity to 15 mm of CO2. Lower midline and suprapubic ports were placed under direct laparoscopic view, the patient placed in Trendelenburg position, and tilted to the left. Findings were as noted above. Appendix and cecum were grasped the and brought onto the field. Appendiceal mesentery was sequentially taken down using double firing of ligature device. Appendix was then transected at the cecal base using endoscopic MANOJ stapler. Specimen was placed in an Endo-Catch bag, and retrieved through the umbilical port. Abdominal cavity was copiously irrigated, and secured hemostasis. All ports were removed under direct laparoscopic view. Wounds were closed in the following manner; umbilical wound has fascia reapproximated using interrupted 0 Vicryl sutures. Skin wounds were closed using subcuticular 4-0 Vicryl sutures followed by Steri-Strips and sterile dressings. Wounds were infiltrated 0.5% Marcaine/1% lidocaine at completion. Sponge, needle, and instrument counts reported correct. Patient tolerated the procedure well and emerged from anesthesia stable condition. EBL minimal
[2023-06-12 10:11] VITALS: BP 158/103; PULSE 96; RESP 16; O2SAT 96
--- NOTE | 2023-06-12 10:15 | HO.ANESPROP2 ---
[facility] Active Problems Active Problems: All Active Problems (Updated 06/12/23 @ 08:18 by Neelam Mullen) Acute appendicitis (Acute) Upper respiratory tract infection (Acute) Elevated fasting blood sugar (Acute) Depression, major, recurrent (Acute) Hypertension (Acute) Dyslipidemia (Acute) Deviated septum (Acute) H/O rhinoplasty (Acute) Elevated BP without diagnosis of hypertension (Acute) Physical exam (Acute) Past Medical History Medical History Hypertension Functional capacity: independent ambulation Family History Family History Brother Substance use disorder Paternal Grandfather Substance use disorder Family history of problems with anesthesia: No Surgical History Surgical History H/O rhinoplasty History of Problems with Anesthesia: No Social History Social History Housing: House Alcohol intake: current Alcohol intake frequency: a few times a week Alcohol type: hard liquor Patient Tobacco Use Status: Former Tobacco user Years Smoked: 2 years as of July e-Cigarette/Vaping Use: Never Used Second Hand Smoke Exposure: No Substance Use Type: Marijuana service: No Current occupational status: employed Current occupation: [employer] Current occupational exposures/hazards: Yes Cognitive needs: No Hearing needs: No Vision needs: No Meds Allergies Allergy/AdvReac Type Severity Reaction Status Date / Time No Known Allergies Allergy Verified 06/11/23 14:24 [No Known Allergies*] Active Medications: Current Medications Hydromorphone HCl (Hydromorphone Hcl 1 Mg/Ml Syringe) 1 mg IVPUSH Q4H PRN; Protocol PRN Reason: Pain, Severe (Pain Scale 7-10) Lactated Ringer's (Lr) 1,000 mls @ 150 mls/hr IVCONT .Q6H40M SAHIL Last Admin: 06/12/23 05:29 Dose: 150 mls/hr Piperacillin Sod/Tazobactam (Sod 4.5 gm/ Sodium Chloride) 100 mls @ 200 mls/hr IV Q6H SAHIL Last Infusion: 06/12/23 06:45 Dose: Infused Exam Height,Weight and Vital Signs: Height 5 ft 9 in Weight 138.346 kg Last Vital Signs Temp 98.5 F 06/12/23 09:56 Pulse 96 06/12/23 10:11 Resp 16 06/12/23 10:11 BP 158/103 H 06/12/23 10:11 Pulse Ox 96 06/12/23 10:11 O2 Del Method Nasal Cannula 06/12/23 10:11 O2 Flow Rate 2 06/12/23 10:11 Pertinent Lab Results Pertinent Lab Results: Laboratory Tests 06/11/23 15:00 WBC 7.2 RBC 5.14 Hgb 15.5 Hct 43.3 MCV 84.2 MCH 30.2 MCHC 35.8 RDW 12.8 Plt Count 211 MPV 10.4 Immature Gran % (Auto) 0.4 Neut % (Auto) 52.7 Lymph % (Auto) 33.2 [place] % (Auto) 6.8 Eos % (Auto) 6.2 H Baso % (Auto) 0.7 Lymph # (Auto) 2.4 [place] # (Auto) 0.5 Eos # (Auto) 0.5 H Baso # (Auto) 0.1 Abs Immat Gran (auto) 0.03 Absolute Neuts (auto) 3.8 Absolute Nucleated RBC 0.000 Nucleated RBC % (auto) 0.0 Sodium 138 Potassium 4.1 Chloride 106 Carbon Dioxide 21 L Anion Gap 15 BUN 16 Creatinine 0.83 Estim Creat Clear Calc 178.3 Estimated GFR > 60 Random Glucose 95 Calcium 9.2 Magnesium 2.3 Total Bilirubin 0.3 AST 24 ALT 28 Alkaline Phosphatase 72 Total Protein 8.4 H Albumin 4.6 Lipase 18 Urine Color Yellow Urine Appearance Clear Urine pH 6.0 Ur Specific [place] 1.020 Urine Protein Negative Urine Glucose (UA) Negative Urine Ketones Negative Urine Blood Negative Urine Nitrite Negative Ur Leukocyte Esterase Negative Airway Mallampati Class: III TM Dist: >3cm Neck ROM: Full Heart: RRR Lungs: CTA Assessment and Plan Assessment Anesthesia Assessment: Anesthesia Plan Discussed and Smoking Cess. Discussed Final Anesthetic Review Family History of Problems with Anesthesia: No History of Problems with Anesthesia: No NPO: Yes ASA Class: III and Emergency Patient Risk: Intermediate Procedure Risk: Intermediate Anesthetic Plan Anesthetic Plan: GA Disposition: Standard PACU
--- NOTE | 2023-06-12 10:17 | HO.POSTANES ---
Post Anesthesia Evaluation Post Anesthesia Evaluation Date of Service: 06/12/23 Vital Signs: Vital Signs Temp Pulse Resp BP Pulse Ox O2 Del Method O2 Flow Rate 06/12/23 10:11 96 16 158/103 H 96 Nasal Cannula 2 06/12/23 10:06 103 H 16 152/102 H 94 Nasal Cannula 3 06/12/23 10:01 94 16 175/91 H 95 Nasal Cannula 3 06/12/23 09:56 98.5 F 122 H 16 160/99 H 95 Room Air 06/12/23 06:12 97.8 F 18 163/89 H 98 Room Air 06/11/23 23:40 97.5 F 56 16 141/92 H 98 Room Air Anesthesia: General Endotracheal-GETA Mental Status: Awake Pain Control: Satisfactory Nausea/Vomiting: None Hydration: Adequate Anesthesia-Related Issues: No Anes. Related Issues
[2023-06-12] MEDS: oxyCODONE HCl Immed Release 5 MG TABLET PO (10:19)
[2023-06-12 10:26] VITALS: BP 158/99; PULSE 92; RESP 16; TEMP 36.1; O2SAT 95
--- NOTE | 2023-06-12 10:55 | PC.NURSE ---
1045 Dressing at bedside. OOB ambulated to bathroom steady gait to void.
== END 2023-06-12 11:29 | disposition home or self-care (01) ==
LOC: HO.ED 06-12 07:15 → HO.SSS 06-12 08:05
PROVIDERS: Physician Assistant Medical; Emergency Provider Emergency Medicine Emergency Medical Services; PCP Nurse Practitioner Family; Visit Provider Surgery
PROC: 0DTJ4ZZ Resection of Appendix, Percutaneous Endoscopic Approach (ICD-10-PCS; CPT 44970; principal; 2023-06-12 08:00)
DX: K35.890 Other acute appendicitis without perforation or gangrene (principal); R10.31 Right lower quadrant pain; R51.9 Headache, unspecified; I10 Essential (primary) hypertension
CPT/HCPCS: 44970; 36415; 74176; 80053; 81003; 83690; 83735; 85025; 88304; 96361; 96365; 96366; 96375; 99285; J0665; J1100; J1170; J1885; J2250; J2405; J2543; J2704; J3010; J7120

== ENCOUNTER → 2023-06-12 08:03 | Outpatient (BNV) | payer BC, SELFPAY | PROVIDERS: Emergency Provider Emergency Medicine Emergency Medical Services; PCP Nurse Practitioner Family; Visit Provider Surgery | DX: K35.80 Unspecified acute appendicitis (principal) | CPT/HCPCS: 44970; 99284 ==

== ENCOUNTER 2023-06-21 14:48 | Outpatient (AMB) | payer BC, SELFPAY ==
--- NOTE | 2023-06-21 14:54 | MHC.OFFVIS ---
Intake Vital Signs 06/21/23 14:55 Weight 315 lb BP 137/90 H Blood Pressure Location Rt brachial Position Sitting Pulse 111 H Intake Visit Reasons: s/p lap appy Intake Note: Patient here s/p lap appy on 06-12-23. Reports incisions healing well. Patient c/o: slowly healing. Denies bleeding, irritation. 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 Tolerating diet. Having regular bowel habits. Increasing activity level. Minimal incisional discomfort. PFSH Medical History Hypertension Surgical History H/O rhinoplasty Family History Brother Substance use disorder Paternal Grandfather Substance use disorder Social History Housing: House Alcohol intake: current Alcohol intake frequency: a few times a week Alcohol type: hard liquor Patient Tobacco Use Status: Former Tobacco user Years Smoked: 2 years as of July e-Cigarette/Vaping Use: Never Used Second Hand Smoke Exposure: No Substance Use Type: Marijuana service: No Current occupational status: employed Current occupation: [employer] Current occupational exposures/hazards: Yes Cognitive needs: No Hearing needs: No Vision needs: No Physical Exam Vital Signs: Last Vital Signs Pulse 111 H 06/21/23 14:55 BP 137/90 H 06/21/23 14:55 GI Other: Abdomen soft. All wounds clean dry and intact. Resolving ecchymosis of suprapubic area. Assessment & Plan Assessment & Plan (1) Status post laparoscopic appendectomy: Code(s): Z90.49 - Acquired absence of other specified parts of digestive tract Plan Patient has been given local instructions, work note, and will follow-up p.r.n.. All questions answered. Coding Level of Care Code Global (66105) Diagnoses Status post laparoscopic appendectomy Z90.49
[2023-06-21 14:55] VITALS: BP 137/90; PULSE 111
== END 2023-06-21 15:16 | disposition home or self-care (01) ==
PROVIDERS: PCP Nurse Practitioner Family; Visit Provider Surgery
DX: Z90.49 Acquired absence of other specified parts of digestive tract (principal)
CPT/HCPCS: 99024

== ENCOUNTER → 2023-06-21 14:48 | Outpatient (BNVA) | payer BC, SELFPAY | PROVIDERS: PCP Nurse Practitioner Family; Visit Provider Surgery ==

== ENCOUNTER 2023-07-06 11:40 | Outpatient (AMB) | payer BC, SELFPAY ==
[2023-07-06 11:47] VITALS: BP 147/80; PULSE 92
--- NOTE | 2023-07-06 11:47 | MHC.OFFVIS ---
Intake Vital Signs 07/06/23 11:47 Weight 318 lb BP 147/80 H Blood Pressure Location Rt brachial Position Sitting Pulse 92 Intake Visit Reasons: redness & swelling, s/p lap appy Intake Note: Patient here c/o: redness and swelling at surgical site. Pain started 3d ago. Was seen at Urgent care clinic on Wednesday07-04-23. Prescribed Sulfa and mupirocin oint. SX: Lap appy 06-12-23. 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 He was seen in walk-in clinic and presents here for follow-up. He is otherwise doing well. He has tolerating a diet. Having regular bowel habits. He is returned to work. [facility] Medical History Hypertension Surgical History H/O rhinoplasty Family History Brother Substance use disorder Paternal Grandfather Substance use disorder Social History Housing: House Alcohol intake: current Alcohol intake frequency: a few times a week Alcohol type: hard liquor Patient Tobacco Use Status: Former Tobacco user Years Smoked: 2 years as of July e-Cigarette/Vaping Use: Never Used Second Hand Smoke Exposure: No Substance Use Type: Marijuana service: No Current occupational status: employed Current occupation: [employer] Current occupational exposures/hazards: Yes Cognitive needs: No Hearing needs: No Vision needs: No Physical Exam Vital Signs: Last Vital Signs Pulse 92 07/06/23 11:47 BP 147/80 H 07/06/23 11:47 GI Other: Very corpulent abdomen. The left lateral part of the incision is extruding a suture. This was uneventfully removed and bacitracin and dressing applied. Well tolerated. Assessment & Plan Assessment & Plan (1) Postoperative stitch abscess: Code(s): T81.41XA - Infection following a procedure, superficial incisional surgical site, initial encounter Plan Patient has been given local instructions, and will follow-up p.r.n.. All questions answered. Coding Level of Care Code Global (87172) Diagnoses Postoperative stitch abscess T81.41XA
== END 2023-07-06 12:02 | disposition home or self-care (01) ==
PROVIDERS: PCP Nurse Practitioner Family; Visit Provider Surgery
DX: T81.41XA Infection following a procedure, superficial incisional surgical site, initial encounter (principal)
CPT/HCPCS: 99024

== ENCOUNTER → 2023-07-06 11:40 | Outpatient (BNVA) | payer BC, SELFPAY | PROVIDERS: PCP Nurse Practitioner Family; Visit Provider Surgery ==

== ENCOUNTER 2023-08-05 06:19 | Outpatient (REF) | payer BC, SELFPAY ==
[2023-08-05 06:34] LABS: MANUAL DIFF FLAG NO
[2023-08-05 07:41] LABS: Basophils Absolute Auto 0.1 X10*3/uL (0.0-0.2); Eosinophils Absolute Auto 0.4 X10*3/uL (0.0-0.4); Eosinophils Percent Auto 6.8 % (0-4); Hematocrit 45.5 % (42.0-52.0); Hemoglobin 15.9 g/dl (14.0-18.0); Imm Gran Abs Auto 0.01 X10*3/uL (0.00-0.03); Imm Gran Pct Auto 0.2 % (0.0-0.4); Lymphocytes Absolute Auto 2.1 X10*3/uL (1.2-4.9); Lymphocytes Percent Auto 35.3 % (20-40); Mean Corpuscular HGB Conc 34.9 g/dl (31.0-36.0); Mean Corpuscular Hemoglobin 29.8 pg (27.0-33.0); Mean Corpuscular Volume 85.2 fL (80.0-98.0); Mean Platelet Volume 10.7 fL (9.4-12.4); Monocytes Absolute Auto 0.5 X10*3/uL (0.1-1.2); Monocytes Percent Auto 8.1 % (2-11); Neutrophils Percent Auto 48.6 % (45-73); Platelet Count 220 X10*3/uL (160-400); Red Blood Count 5.34 X10*6/uL (4.60-5.80); Red Cell Distribution Width 12.5 % (11.0-16.0); White Blood Count 6.1 X10*3/uL (4.8-10.8)
[2023-08-05 07:42] LABS: Appearance Urine Clear; Color Urine Yellow; Glucose Urine UA Negative (Negative); Leukocyte Esterase Urine Negative (Negative); Nitrite Urine Negative (Negative); Specific Gravity - Urine 1.015 (1.005-1.025); Urine Blood Negative (Negative); Urine Ketones Negative (Negative); Urine Protein Negative (Neg-Trace)
[2023-08-05 08:25] LABS: Alanine Aminotransferase 23 U/L (0-40); Albumin Level 4.4 g/dL (3.5-5.0); Alkaline Phosphatase 77 U/L (39-117); Anion Gap 12 (12-20); Aspartate Amino Transferase 22 U/L (5-37); Bilirubin Total 0.4 mg/dL (0.0-1.0); Blood Urea Nitrogen 19 mg/dL (9-16); Calcium 9.1 mg/dL (8.4-10.2); Carbon Dioxide 23 mmol/L (22-29); Chloride 109 mmol/L (96-108); Cholesterol 210 mg/dL (<200); Estimated Glomerular Filt Rate > 60; Glucose Fasting 109 mg/dL (60-99); HDL Cholesterol 37 mg/dL (>40); Potassium 4.3 mmol/L (3.3-5.1); Sodium 140 mmol/L (135-145); Total Protein 7.7 g/dL (6.5-8.0); Triglycerides 400 mg/dL (<150)
[2023-08-05 08:31] LABS: TSH reflex Free T4 0.71 uIU/mL (0.32-4.0)
== END 2023-08-05 06:20 | disposition home or self-care (01) ==
LOC: HO.LAB 06:19
PROVIDERS: PCP Nurse Practitioner Family; Visit Provider Nurse Practitioner Family
DX: E78.5 Hyperlipidemia, unspecified (principal); F33.9 Major depressive disorder, recurrent, unspecified
CPT/HCPCS: 36415; 80053; 80061; 81003; 84443; 85025

== ENCOUNTER 2023-08-05 08:49 | Outpatient (AMB) | payer BC, SELFPAY ==
--- NOTE | 2023-08-05 08:51 | MHC.PC.OV ---
Vital Signs 08/05/23 09:03 Weight 318 lb BP 130/82 Blood Pressure Location Lt brachial Position Sitting Pulse 76 Pulse Source Pulse Oximeter Pulse Oximetry (%) 98 Oxygen Delivery Method Room Air Intake Visit Reasons: FMLA/Depression Intake Note: Patient here for fmla paperwork and f/u on depression. Allergies No Known Allergies [No Known Allergies*] Allergy (Verified 08/05/23 09:03) Medication List - Last Reconciled 08/05/23 by YULISA Eaton buspirone 30 mg PO BID 90 days sertraline 150 mg (1.5 x 100 mg) PO DAILY 90 days Tobacco use date assessed: 05/10/23 Dental Screening Dental Screen Date: 05/10/23 HPI FMLA/Depression HPI Details Anxiety/depression: Pt is currently taking buspirone 30mg and sertraline 150mg. He reports doing very well on these meds. Pt would not like a therapist. Denies any SI and HI. dyslipidemia: pt discussed intermittent fasting, explained 16-8hrs is the most commonly followed regime. will place a call out to pt (computer not up during office visit to go over all labs) to recommend portion control, and incorporating healthier foods, will repeat choles panel in 2 months PFS Medical History Hypertension Surgical History H/O rhinoplasty Family History Brother Substance use disorder Paternal Grandfather Substance use disorder Social History Housing: House Alcohol intake: current Alcohol intake frequency: a few times a week Alcohol type: hard liquor Patient Tobacco Use Status: Former Tobacco user Years Smoked: 2 years as of July e-Cigarette/Vaping Use: Never Used Second Hand Smoke Exposure: No Substance Use Type: Marijuana service: No Current occupational status: employed Current occupation: [employer] Current occupational exposures/hazards: Yes Cognitive needs: No Hearing needs: No Vision needs: No Questionnaire Thrive Questionnaire Date Thrive assessed: 05/22/21 BRICE-7 AMB Questionnaire BRICE-7 Date BRICE - 7 assessed: 05/10/23 Source: Developed by Drs. Bryan Olmos, Amarilys Cosme, Gabriel Field and colleagues, with an educational frandy from [employer]. Review of Systems Const Reports as per HPI Physical exam (Primary Care) Vital Signs: Last Vital Signs Pulse 76 08/05/23 09:03 BP 130/82 08/05/23 09:03 Pulse Ox 98 08/05/23 09:03 Oxygen Delivery Method Room Air 08/05/23 09:03 Tobacco/Smoking Status: Tobacco use Status Tobacco use date assessed 05/10/23 08/05/23 08:51 Patient Tobacco Use Status Former Tobacco user 08/05/23 08:51 e-Cigarette/Vaping Use Never Used 08/05/23 08:51 Thrive Assessment: Date of Thrive Assessment Date Thrive assessed 05/22/21 08/05/23 08:51 Const General: cooperative Nutritional Appearance: obese Orientation/consciousness: patient oriented x3 Resp Effort & Inspection: normal respiratory effort Auscultation: clear to auscultation bilaterally Cardio Rate: regular rate Rhythm: regular rhythm Heart sounds: S1 normal heart sound present and S2 normal heart sound present Neuro General: patient oriented x3 Psych Appearance: grossly normal Mental Status: mental status grossly normal Speech and movement: Normal speech and movement present Affect: normal affect Attitude: cooperative Thought process: Normal thought process present Thought content: Normal thought content present Insight: Good insight present (Psych) Judgement: Good judgement present (Psych) Assessment and Plan Assessment & Plan (1) Dyslipidemia: Code(s): E78.5 - Hyperlipidemia, unspecified Plan: computer system down when pt was here. labs resulted, choles/Trigs up, unable to calculate LDL to such elevated levels. Pt and myself did discuss intermittent fasting, will reinforce importance of portion control and incorporating better/healthier foods. will repeat lips in 2 months (2) Depression, major, recurrent: Code(s): F33.9 - Major depressive disorder, recurrent, unspecified (3) Anxiety: Code(s): F41.9 - Anxiety disorder, unspecified Plan: continue buspirone and sertraline, working well so-far. Plan The patient agreed to the use of a nuclear medicine medical director for this encounter. Scribed for YULISA Ibarra by eddi Stevens scribe, on 08/05/2023 at 09:25 EST. Orders: Orders LDL Cholesterol Direct Today E78.5 - Hyperlipidemia, unspecified Comprehensive [place]. Panel Fast 2 Months E78.5 - Hyperlipidemia, unspecified Lipid Panel 2 Months E78.5 - Hyperlipidemia, unspecified Medications: Changed From buspirone 30 mg PO BID 30 days 60 tabs 2RF To buspirone 30 mg PO BID 90 days 180 tabs 3RF From sertraline Schedule next PCP appt for more refills 150 mg (1.5 x 100 mg) PO DAILY 135 tabs 0RF To sertraline 150 mg (1.5 x 100 mg) PO DAILY 90 days 135 tabs 3RF Coding Level of Care Code Est Pt Level 3 (35964) Diagnoses Dyslipidemia E78.5 Depression, major, recurrent F33.9 Anxiety F41.9
[2023-08-05 09:03] VITALS: BP 130/82; PULSE 76; O2SAT 98
== END 2023-08-05 10:25 | disposition home or self-care (01) ==
PROVIDERS: PCP Nurse Practitioner Family; Visit Provider Nurse Practitioner Family
DX: E78.5 Hyperlipidemia, unspecified (principal); F33.9 Major depressive disorder, recurrent, unspecified; F41.9 Anxiety disorder, unspecified
CPT/HCPCS: 99213

== ENCOUNTER 2023-08-23 11:22 | Outpatient (AMB) | payer BC, SELFPAY ==
--- NOTE | 2023-08-23 11:26 | A.OFFVIS_ITS ---
VS Expanded 08/23/23 11:29 08/30/23 09:33 Height 5 ft 9 in 5 ft 9 in Weight 313 lb 7.957 oz 313 lb BMI 46.3 46.2 Intake Visit Reasons: Hyperlipidemia/LVM Allergies No Known Allergies [No Known Allergies*] Allergy (Verified 08/05/23 09:03) Nutrition Presentation Details: Pt was referred for MNT for Impaired fasting blood glucose, hyperlipidemia, essential HTN. The Pt was referred by PCP, Rafaela Darby Pt reports working on reducing ETOH consumption for the past 5 weeks. Work schedule typically from 1 pm - 9:30 pm Reports typically eating out the majority of the time, fast food meals. physical activity: daily life plus at work food frequency fruits/d: 0 veg: starchy veg majority of the time dairy: cheese mostly fish: not including starches > 20 servings fried foods daily BS Monitoring Most Recent Diabetes Results: Cholesterol 210 mg/dL (<200) H 08/05/23 HDL Cholesterol 37 mg/dL (>40) L 08/05/23 Triglycerides 400 mg/dL (<150) H 08/05/23 Creatinine 0.86 mg/dL (0.5-1.4) 08/05/23 Blood Urea Nitrogen 19 mg/dL (9-16) H 08/05/23 Sodium 140 mmol/L (135-145) 08/05/23 Potassium 4.3 mmol/L (3.3-5.1) 08/05/23 Chloride 109 mmol/L (96-108) H 08/05/23 Carbon Dioxide 23 mmol/L (22-29) 08/05/23 Calcium 9.1 mg/dL (8.4-10.2) 08/05/23 AST 22 U/L (5-37) 08/05/23 ALT 23 U/L (0-40) 08/05/23 Total Protein 7.7 g/dL (6.5-8.0) 08/05/23 Albumin 4.4 g/dL (3.5-5.0) 08/05/23 QAA-Odpwvzb-Yf.Jeor Equation Height: 5 ft 9 in Weight: 313 lb Resting Metabolic Rate: 2366.18 Calculated Activity Level: Sedentary Calories Needed to Maintain Weight: 2839.42 Diagnosis Nutrition problem #1: excessive energy intake As related to (etiology) #1: lack of nutrit education As evidenced by (sign/symptom) #1: knowledge deficit of diet Monitoring/Goals Nutrition problem monitoring: level of knowledge/skill Learning/Education Readiness to learn: good Stages of change: preparation Educational materials provided: Yes (meal planning) PFSH Medical History Hypertension Surgical History H/O rhinoplasty Family History Brother Substance use disorder Paternal Grandfather Substance use disorder Social History Housing: House Alcohol intake: current Alcohol intake frequency: a few times a week Alcohol type: hard liquor Patient Tobacco Use Status: Former Tobacco user Years Smoked: 2 years as of July e-Cigarette/Vaping Use: Never Used Second Hand Smoke Exposure: No Substance Use Type: Marijuana service: No Current occupational status: employed Current occupation: [employer] Current occupational exposures/hazards: Yes Cognitive needs: No Hearing needs: No Vision needs: No Assessment & Plan Assessment & Plan (1) Elevated fasting blood sugar: Code(s): R73.01 - Impaired fasting glucose Category: Medical Plan Wt: 142 Kg ( 08/2023 ) Est kcal needs as per MSJ: 2800 (40% carb, 30% protein/fat) Est fluid needs as per 25-30 ml/d: 4300 Est prot per day as per 1 g/kg bw: 142 Recommend fiber intake : 8-10 g per day and gradually increase to 25-28 g per day for women and 35-38 g for men or as tolerated Recommend sodium intake per day : less than 1500 mg less than 2000 mg Educated patient on: ( R = reviewed V = verbalizes understanding N/R = needs review N/A = not applicable * Food sources of carbohydrate, adequate serving sizes and its role in various health conditions: R * Differences between complex carbohydrates a simple carbohydrates, role of fiber in diet: R * Lean protein sources of foods: R V NR * Differences between types of fats and role in diet (mono on saturated fat fatty acids, saturated fatty acids, trans fats): R * Food sources of sodium in salt and healthy modifications for heart health in kidney health: R V R/V * Vitamins and minerals: R V N/R * Healthy plate method concept: R V * Physical activity: Benefits a precaution: R V * Hypoglycemia protocol (rule of 15): N/R * Dietary prevention of Hyperglycemia: R Patient Instructions: Work on reducing on fried foods including fried starchy foods Drink water, fruit/herb infused water , reducing on empty calorie beverages Practice mindful eating Coding Level of Care Code Nutr Indiv Intake (88292) Diagnoses Elevated fasting blood sugar R73.01 Time Spent (min) 30
[2023-08-23 11:29] VITALS: BMI 46.3
[2023-08-30 13:57] VITALS: BMI 46.2
== END 2023-08-23 12:11 | disposition home or self-care (01) ==
PROVIDERS: PCP Nurse Practitioner Family; Visit Provider Dietitian, Registered
DX: R73.01 Impaired fasting glucose (principal)

== ENCOUNTER → 2023-08-23 11:22 | Outpatient (BNVA) | payer BC, SELFPAY | PROVIDERS: PCP Nurse Practitioner Family; Visit Provider Dietitian, Registered | DX: R73.01 Impaired fasting glucose (principal); Z71.3 Dietary counseling and surveillance | CPT/HCPCS: 97802 ==

== ENCOUNTER 2023-11-15 13:51 | Outpatient (AMB) | payer BC, SELFPAY ==
--- NOTE | 2023-11-15 13:55 | MHC.PC.OV ---
Vital Signs 11/15/23 13:57 Height 5 ft 9 in Weight 310 lb BMI 45.8 BP 128/92 H Blood Pressure Location Lt brachial Position Sitting Pulse 101 H Pulse Source Pulse Oximeter Pulse Oximetry (%) 98 Oxygen Delivery Method Room Air Intake Visit Reasons: Annual PE/OVERDUE Intake Note: Patient here for physical exam. pt would like to talk about recent headaches which are constant and has tried meds but does not help. Allergies No Known Allergies [No Known Allergies*] Allergy (Verified 11/15/23 13:59) Tobacco use date assessed: 05/10/23 Dental Screening Dental Screen Date: 05/10/23 HPI Annual PE/OVERDUE HPI Details pt is here for a PE. Reports frequent diarrhea recently, though this is getting better. He reports some blood when he wipes and tenderness with wiping so much. He did not want me to perform a rectal exam today. Mentioned importance of proper diet, using baby wipes to wipe, and he will follow up with me if this continues. NOTE: pt appears very stressed today [facility] Medical History Hypertension Surgical History H/O rhinoplasty Family History Brother Substance use disorder Paternal Grandfather Substance use disorder Social History Housing: House Alcohol intake: current Alcohol intake frequency: a few times a week Alcohol type: hard liquor Patient Tobacco Use Status: Former Tobacco user Years Smoked: 2 years as of July e-Cigarette/Vaping Use: Never Used Second Hand Smoke Exposure: No Substance Use Type: Marijuana service: No Current occupational status: employed Current occupation: [employer] Current occupational exposures/hazards: Yes Cognitive needs: No Hearing needs: No Vision needs: No Questionnaire PHQ-9 Over the last 2 weeks, how often have you been bothered by any of the following problems? 1. Little interest or pleasure in doing things: not at all 2. Feeling down, depressed, or hopeless: several days 3. Trouble falling or staying asleep, or sleeping too much: nearly every day 4. Feeling tired or having little energy: more than half the days 5. Poor appetite or overeating: several days 6. Feeling bad about yourself - or that you are a failure or have let yourself or your family down: more than half the days 7. Trouble concentrating on things, such as reading the newspaper or watching television: not at all 8. Moving or speaking so slowly that other people could have noticed. Or the opposite - being so fidgety or restless that you have been moving around a lot more than usual: not at all 9. Thoughts that you would be better off or of hurting yourself in some way: not at all Total score: 9 Depression Screening Interpretation: Positive Depression Screening Follow-up: Existing condition and Declines treatment Depression Screening Done: Yes 15912 - PHQ-9 Billing: Yes Source: Developed by Drs. Bryan Olmos, Amarilys Cosme, Gabriel Field and colleagues, with an educational frandy from [employer]. Thrive Questionnaire Date Thrive assessed: 11/15/23 I am a: Patient What is your living situation today?: I have a steady place to live Within the past 12 months, did the food you bought not last and you didn't have the money to get more?: Never true Within the past 12 months, did you worry whether your food would run out before you got money to buy more?: Never true Do you have trouble paying for medicines?: No Do you have trouble getting transportation to medical appointments?: No Do you have trouble paying your heating and electricity bill?: No Do you have trouble taking care of your child, family member or friend?: No Do you have trouble with day-to-day activities such as bathing, preparing meals, shopping, managing finances, etc.?: No Are you currently unemployed and looking for a job?: No Are you interested in more education?: No Please select the resources that you would like help with: Housing/Correction Currently or been in a relationship where the following occur: No concerns reported THRIVE Score: 0 AUDIT C Alcohol Use Questionnaire (AUDIT-C) 1. How often do you have a drink containing alcohol?: 2-3 times a week 2. How many drinks containing alcohol do you have on a typical day when you are drinking?: 3 or 4 3. How often do you have six or more drinks on one occasion?: Monthly Total Score: 6 BRICE-7 AMB Questionnaire BRICE-7 Date BRICE - 7 assessed: 05/10/23 Feeling nervous, anxious, or on edge: 0 = Not at all Not being able to stop or control worryin = Not at all Worrying too much about different things: 1 = Several days Trouble relaxin = Several days Being so restless that it is hard to sit still: 0 = Not at all Becoming easily annoyed or irritable: 0 = Not at all Feeling afraid as if something awful might happen: 0 = Not at all Total BRICE-7 score (0-4 normal; 5-9 mild; 10-14 moderate; 15-21 severe): 2 Source: Developed by Drs. Bryan Olmos, Amarilys Cosme, Gabriel Field and colleagues, with an educational frandy from [employer]. BRICE-7 Assessment Billing BRICE-7 Assessment Tool: BRICE-7 Assessment 87052 Review of Systems Const Denies chills and Denies fever(s) Eyes Denies blurry vision ENT Denies vertigo, Denies dizziness and Denies sore throat Card Denies chest pain at rest, Denies chest pain with activity, Denies diaphoresis, Denies dyspnea and Denies dyspnea on exertion Resp Denies cough, Denies dyspnea, Denies dyspnea on exertion and Denies wheezing GI Denies abdominal pain, Denies melena, Reports hematochezia, Denies constipation, Reports diarrhea and Reports loose stools Denies hematuria Musc Denies numbness and Denies tingling Skin/Breast Denies lesions Neuro Denies vertigo, Denies dizziness, Denies numbness and Denies tingling Psych Denies anxiety, Denies depression, Denies homicidal ideation, Denies suicidal ideation and Denies other (substance abuse) Aller/Immun Denies wheezing Physical exam (Primary Care) Vital Signs: Last Vital Signs Pulse 101 H 11/15/23 13:57 BP 128/92 H 11/15/23 13:57 Pulse Ox 98 11/15/23 13:57 Oxygen Delivery Method Room Air 11/15/23 13:57 BMI result Body Mass Index 45.8 Tobacco/Smoking Status: Tobacco use Status Tobacco use date assessed 05/10/23 11/15/23 13:58 Patient Tobacco Use Status Former Tobacco user 11/15/23 13:58 e-Cigarette/Vaping Use Never Used 11/15/23 13:58 PHQ-9: PHQ-9 Score PHQ-9: Total score 9 11/15/23 13:58 Depression Screening Interpretation: Positive Depression Screening Follow-up: Existing condition and Declines treatment Thrive Assessment: Date of Thrive Assessment Date Thrive assessed 11/15/23 11/15/23 13:58 Currently or been in a relationship where the following occur: No concerns reported Const General: cooperative Nutritional Appearance: well nourished and obese Orientation/consciousness: patient oriented x3 HENMT Head: Yes normal to inspection, Yes normocephalic and Yes atraumatic Ears: TM normal on the right and TM normal on the left Eyes General: appearance normal, both eyes and all related structures Alignment and Position: alignment normal and position normal Neck Neck: Yes normal visual inspection and Yes no lymphadenopathy Resp Effort & Inspection: normal respiratory effort Auscultation: clear to auscultation bilaterally Cardio Rate: regular rate Rhythm: regular rhythm Heart sounds: S1 normal heart sound present, S2 normal heart sound present and no murmurs GI Palpation (GI): Soft to palpation and nontender Auscultation: normal bowel sounds Other: left lower scrotum with small cystic lesion/papular to external scrotum. Male General Exam: Yes normal external exam Penis: normal penis Scrotum: scrotum normal, testes descended bilaterally and no inguinal hernias Testes: no testicular mass Skin Rashes: no rashes Neuro General: patient oriented x3, moves all extremities, no focal motor deficits and deep tendon reflexes 2+ bilaterally Romberg Test: Negative Extrem Right lower extremity: no edema Left lower extremity: no edema Psych Affect: normal affect Attitude: cooperative Thought process: Normal thought process present Assessment and Plan Assessment & Plan (1) Physical exam: Code(s): Z00.00 - Encounter for general adult medical examination without abnormal findings (2) Diarrhea: Code(s): R19.7 - Diarrhea, unspecified Plan: increase fiber to help bulk stools, or use imodium. Instructed use of baby wipes (3) Hypertension: Code(s): I10 - Essential (primary) hypertension Plan: take his BP at home, drop off values in the near future. Orders: Orders Complete Blood Count Auto Diff Today Z00.00 - Encounter for general adult medical examination without abnormal findings Comprehensive [place]. Panel Fast Today Z00.00 - Encounter for general adult medical examination without abnormal findings UA CC w/rflx Micro + Cult Today Z00.00 - Encounter for general adult medical examination without abnormal findings Lipid Panel Today Z00.00 - Encounter for general adult medical examination without abnormal findings TSH reflex Free T4 Today Z00.00 - Encounter for general adult medical examination without abnormal findings Coding Level of Care Code Est Pt Prev Care 18-39y(54511) Diagnoses Physical exam Z00.00 Diarrhea R19.7 Hypertension I10 Additional Codes BRICE-7 Assessment Billing - BRICE-7 Assessment Tool: BRICE-7 Assessment [id number] ([id number])
[2023-11-15 13:57] VITALS: BP 128/92; PULSE 101; O2SAT 98; BMI 45.8
== END 2023-11-15 14:36 | disposition home or self-care (01) ==
PROVIDERS: PCP Nurse Practitioner Family; Visit Provider Nurse Practitioner Family
DX: Z00.00 Encounter for general adult medical examination without abnormal findings (principal); R19.7 Diarrhea, unspecified; I10 Essential (primary) hypertension
CPT/HCPCS: 99395

== ENCOUNTER 2025-01-29 12:58 | Outpatient (AMB) | payer BC, SELFPAY ==
[2025-01-29 13:07] VITALS: BP 128/88; PULSE 105; RESP 16; O2SAT 98; BMI 51.4
--- NOTE | 2025-01-29 13:07 | A.OFFPC_ITS ---
Vital Signs 01/29/25 13:07 Height 5 ft 9 in Weight 348 lb BMI 51.4 BP 128/88 Blood Pressure Location Lt brachial Position Sitting Respiration 16 Pulse 105 H Pulse Source Pulse Oximeter Pulse Oximetry (%) 98 Oxygen Delivery Method Room Air Intake Visit Reasons: Umbilical Hernia Allergies No Known Allergies (No Known Allergies*) Allergy (Verified 01/29/25 12:45) Medication List - Last Reconciled 01/29/25 by Malik Darby [employer]ATE- buspirone 30 mg PO BID 90 days sertraline 150 mg (1.5 x 100 mg) PO DAILY 90 days Tobacco use date assessed: 05/10/23 Dental Screening Dental Screen Date: 05/10/23 HPI Umbilical Hernia HPI Details Chief Complaint The patient reports noticing a bump at the umbilicus, suspecting an umbilical hernia. History of Present Illness The patient is a 34-year-old male presenting with a suspected umbilical hernia. He noticed a bump at his umbilicus and went to the emergency room yesterday, where no imaging was performed. The patient denies any tenderness, pain, or redness around the area, but is concerned about the hernia enlarging. On examination, a small umbilical hernia was noted, which is not protruding from the umbilicus. The patient is morbidly obese, which may contribute to the development or exacerbation of the hernia. HTN: currently stable, labs ordered. denies any alston, Blurred vision, CP, SOB, or dizziness Social History Health Maintenance Review of Systems - Gastrointestinal: Denies tenderness, p ain, or redness around the umbilicus Physical Exam General: Cooperative, healthy appearing, comfortable, no acute distress and well developed, morbidly obese Orientation: Patient oriented x3 Limitations: No limitations Head: Normal to inspection Ears: Hearing grossly normal bilaterally Nose: Normal external nose present Face and sinus: Normal facial exam Eyes: Appearance normal, both eyes and all related structures Neck: Normal visual inspection and Yes full ROM Respiratory: Normal respiratory effort and able to speak in complete sentences. Clear to auscultation bilaterally Cardiovascular: Regular rate and rhythm. Normal S1 and S2 GI: Small umbilical hernia noted, very small, not even protruding from the umbilicus. Soft to palpation and nontender Skin: No rashes or lesions noted Neuro: Patient oriented x3 Extremities: Normal to inspection Results Plan 1. Umbilical Hernia The patient will undergo a CT scan to further assess the umbilical hernia. The patient was reassured that the condition is not life-threatening. 2. Morbid Obesity The patient's morbid obesity was noted as a contributing factor to the hernia. Discussion Notes I discussed with the patient that the umbilical hernia is not life-threatening and that a CT scan will be performed to assess it further. I reassured him about the condition and explained that his morbid obesity might be contributing to the hernia. Patient Instructions - Follow up for a CT scan as scheduled. - Monitor the umbilical area for any adalgisa nges such as increased size, pain, or redness. - Maintain a healthy weight to help doreen ge the hernia. [facility] Medical History Hypertension Surgical History H/O rhinoplasty Family History Brother Substance use disorder Paternal Grandfather Substance use disorder Social History Housing: House Alcohol intake: current Alcohol intake frequency: a few times a week Alcohol type: hard liquor Patient Tobacco Use Status: Former Tobacco user Years Smoked: 2 years as of July e-Cigarette/Vaping Use: Never Used Second Hand Smoke Exposure: No Substance Use Type: Marijuana service: No Current occupational status: employed Current occupation: [employer] Current occupational exposures/hazards: Yes Cognitive needs: No Hearing needs: No Vision needs: No Questionnaire Thrive Questionnaire Date Thrive assessed: 11/15/23 BRICE-7 AMB Questionnaire BRICE-7 Date BRICE - 7 assessed: 05/10/23 Source: Developed by Drs. Bryan Olmos, Amarilys Cosme, Gabriel Field and colleagues, with an educational frandy from [employer]. Physical exam (Primary Care) Vital Signs: Last Vital Signs Pulse 105 H 01/29/25 13:07 Resp 16 01/29/25 13:07 BP 128/88 01/29/25 13:07 Pulse Ox 98 01/29/25 13:07 Oxygen Delivery Method Room Air 01/29/25 13:07 BMI result Body Mass Index 51.4 Tobacco/Smoking Status: Tobacco use Status Tobacco use date assessed 05/10/23 01/29/25 13:13 Patient Tobacco Use Status Former Tobacco user 01/29/25 13:13 e-Cigarette/Vaping Use Never Used 01/29/25 13:13 Thrive Assessment: Date of Thrive Assessment Date Thrive assessed 11/15/23 01/29/25 13:13 Coding Level of Care Code Est Pt Level 3 (38872) Diagnoses Umbilical hernia K42.9 Hypertension I10 Assessment & Plan Assessment & Plan (1) Umbilical hernia: Code(s): K42.9 - Umbilical hernia without obstruction or gangrene Category: Medical (2) Hypertension: Code(s): I10 - Essential (primary) hypertension Category: Medical Plan . Orders: Orders Complete Blood Count Auto Diff Today I10 - Essential (primary) hypertension, K42.9 - Umbilical hernia without obstruction or gangrene Comprehensive [place]. Panel Fast Today I10 - Essential (primary) hypertension, K42.9 - Umbilical hernia without obstruction or gangrene TSH reflex Free T4 Today I10 - Essential (primary) hypertension, K42.9 - Umbilical hernia without obstruction or gangrene Lipid Panel Today I10 - Essential (primary) hypertension, K42.9 - Umbilical hernia without obstruction or gangrene CT abdomen pelvis wo IV con Today K42.9 - Umbilical hernia without obstruction or gangrene UA CC w/rflx Micro + Cult Today I10 - Essential (primary) hypertension, K42.9 - Umbilical hernia without obstruction or gangrene
== END 2025-01-29 13:35 | disposition home or self-care (01) ==
LOC: HO.HMCC 12:58
PROVIDERS: PCP Nurse Practitioner Family; Visit Provider Nurse Practitioner Family
DX: K42.9 Umbilical hernia without obstruction or gangrene (principal); I10 Essential (primary) hypertension

== ENCOUNTER 2025-03-31 07:12 | Outpatient (REF) | payer BC, SELFPAY ==
--- NOTE | ~2025-03-31 | CT_ITS ---
EXAMINATION: CT ABDOMEN AND PELVIS WITHOUT CONTRAST CLINICAL INFORMATION: Umbilical hernia without obstruction COMPARISON: CT 06/11/2023 TECHNIQUE: Multidetector volumetric imaging was performed from the superior aspect of the liver through the pubic symphysis. Sagittal and coronal reformatted images were obtained on the technologist's workstation. This CT examination was performed using dose optimization techniques as appropriate, variously including the following: *Automated exposure control *Adjustment of mA and/or kV according to patient size (this includes techniques or standardized protocols for targeted exams where dose is matched to indication/reason for exam; i.e. extremities or head) *Use of iterative reconstruction technique FINDINGS: LUNG BASES: The visualized lung bases are unremarkable. LIVER, GALLBLADDER, AND BILIARY TREE: Hepatomegaly. Right lobe measures 21.9 cm craniocaudal. No focal hepatic lesion or biliary ductal dilatation is present. The gallbladder is unremarkable with no evidence of radiopaque gallstones, gallbladder wall thickening, or obvious pericholecystic inflammatory changes. PANCREAS: Unremarkable. SPLEEN: Unremarkable. ADRENAL GLANDS: Unremarkable. KIDNEYS AND URETERS: The kidneys are normal in size, shape, and attenuation. No hydronephrosis, hydroureter, or calculi seen. No perinephric stranding. BLADDER: Unremarkable. GASTROINTESTINAL TRACT: Nonobstructive bowel gas pattern. No bowel inflammatory changes seen. Status post appendectomy. No ascites. No free air. Mesenteric stranding. ABDOMINAL WALL: Small fat-containing umbilical hernia, neck measuring 2.9 cm transverse, 2.6 cm craniocaudal. Mild stranding in the fat. LYMPH NODES: No pathologically enlarged lymph nodes. VASCULAR: Normal caliber aorta. PELVIC VISCERA: Unremarkable. OSSEOUS STRUCTURES: No destructive bony lesion. CT/CT abdomen pelvis wo IV con IMPRESSION: *Small fat-containing umbilical hernia, neck measuring 2.9 x 2.6 cm. *Hepatomegaly. *Additional findings as above. Fleischner guidelines were followed. Electronically signed by: Francisco Toussaint MD 04/02/2025 12:10 PM [facility]
--- OUTSIDE RECORDS SUMMARY | 2025-03-31 07:15 | XMS_ITS | Patient Health Record ---
Author Organization [facility] Address [address] [place] [address] Care Team Providers Care Oncology Nurse Name Role Phone Malik Vazquez Primary Care Provider Unav ailable Black, Kacy Unavailable [phone] Allergies No Known Allergies Reason For Referral No Information Medications Medication SIG (Take, Route, Fr equency, Duration) Notes Start Date End Date Status busPIRone HCl 5 MG 1 tablet Orally Twice a day Active Sertraline HCl 25 MG 1 tablet Orally Onc e a day; Duration: 30 day(s) Active Social History Tobacco Use: Social History Observation Description Date Details (start date - stop date) Former Smoker NA - NA Tobacco Use/Smoking Question Answer Notes Are you a: former smoker Additional Findings: Tobacco Non-User Ex-cigaret te smoker Alcohol Screen Question Answer Notes Did you have a drink contain ing alcohol in the past year? Yes How often did you have a dri nk containing alcohol in the past year? Monthly or less (1 point) Points 1 Interpretation Negative Tobacco use other than smoking: Question Answer Notes Are you an other tobacco user? No Problems No Known Problems Plan Of Treatment Pending Test Test Name Order Date - Ganglion Cyst Injection/Aspiratio n 01/01/2022 Insurance Providers Payer Name Payer Address Payer Phone Subscriber Number Group Number Insured Name Patient Relationship to Insured Coverage Start Date Coverage End Date [facility] [address] [place] [address] [id number] Kenneth Muñozon Self - patient is the insured Medical (General) History Medical History History ICD Code Anxiety Back,Hip,and Knee pain covid-19 Depression Headaches/Migraines High blood pressure Chicken pox Surgical History Surgery Date(Month/Year) rhinoplasty
== END 2025-03-31 07:13 | disposition home or self-care (01) ==
LOC: HO.CT 07:12
PROVIDERS: PCP Nurse Practitioner Family; Visit Provider Nurse Practitioner Family
DX: K42.9 Umbilical hernia without obstruction or gangrene (principal)
CPT/HCPCS: 74176

== ENCOUNTER → 2025-03-31 07:14 | Outpatient (BNV) | payer BC, SELFPAY | PROVIDERS: PCP Nurse Practitioner Family; Visit Provider Radiology Diagnostic Ultrasound | DX: K42.9 Umbilical hernia without obstruction or gangrene (principal); R16.0 Hepatomegaly, not elsewhere classified | CPT/HCPCS: 74176 ==

== ENCOUNTER 2025-04-03 08:54 | Outpatient (AMB) | payer BC, SELFPAY ==
[2025-04-03 09:06] VITALS: BP 148/98; PULSE 88; TEMP 36.7; O2SAT 95; BMI 37.8
--- NOTE | 2025-04-03 09:06 | AM.OFFWIN_ITS ---
Intake Vital Signs 04/03/25 09:06 Height 5 ft 9 in Weight 256 lb BMI 37.8 BP 148/98 H Blood Pressure Location Rt brachial Position Sitting Pulse 88 Pulse Source Pulse Oximeter Temp 98.1 F Temp Source Oral Pulse Oximetry (%) 95 Oxygen Delivery Method Room Air Intake Visit Reasons: EP diarrhea stomach cramps fatigue Intake Note: Patient presents c/o diarrhea, stomach cramps, fatigue x2 days. Patient Tobacco Use Status: Former Tobacco user Allergies No Known Allergies (No Known Allergies*) Allergy (Verified 04/03/25 09:09) Do you need a note to return to daycare/school/sports/work: Yes HPI HPI Comments History of Present Illness Details History of Present Illness - The patient is a 34-year-old male pres enting with abdominal cramping and diarrhea. - His symptoms began on Wednesday night and include constant diarrhea, stomach cramps, body aches, and feeling drained. - He denies fever or significant nausea but reports a loss of appetite, a scratchy throat, and some coughing. - The patient did not eat any new foods before the onset of symptoms. - He has three children, two of whom are in school, and reports that his was sick last week and his children were sick a couple of weeks prior, suggesting a possible household exposure. - He denies vomiting, blood in the stool , melena, CP, SOB, back pain, dysuria, or hematuria. Physical Exam General: Cooperative, healthy appearing, comfortable, no acute distress and well developed Orientation: Patient oriented x3 Head: NC/AT Sinuses: No TTP of the sinuses in the frontal or maxillary areas. Throat/mouth: Oropharynx is erythematous with no exudates. Uvula is midline. Respiratory: Normal respiratory effort and able to speak in complete sentences. Clear to auscultation bilaterally Cardiovascular: Regular rate and rhythm. Normal S1 and S2 GI: Normal to inspection. Soft to palpation and nontender. No guarding or rebound tenderness noted. Negative CVA tenderness noted. Skin: No rashes or lesions noted Neuro: Patient oriented x3 Extremities: Normal to inspection Patient was informed and verbally consented to the use of an ambient scribe for clinic note documentation during this visit. [facility] Medical History Hypertension Surgical History H/O rhinoplasty Family History Brother Substance use disorder Paternal Grandfather Substance use disorder Social History Housing: House Alcohol intake: current Alcohol intake frequency: a few times a week Alcohol type: hard liquor Patient Tobacco Use Status: Former Tobacco user Years Smoked: 2 years as of July e-Cigarette/Vaping Use: Never Used Second Hand Smoke Exposure: No Substance Use Type: Marijuana service: No Current occupational status: employed Current occupation: [email or web address] Current occupational exposures/hazards: Yes Cognitive needs: No Hearing needs: No Vision needs: No Review of Systems Const All systems reviewed & are unremarkable except as noted in HPI and below Physical Exam Vital Signs: Last Vital Signs Temp 98.1 F 04/03/25 09:06 Pulse 88 04/03/25 09:06 BP 148/98 H 04/03/25 09:06 Pulse Ox 95 04/03/25 09:06 Oxygen Delivery Method Room Air 04/03/25 09:06 BMI result Body Mass Index 37.8 Assessment & Plan Assessment & Plan (1) Diarrhea: Code(s): R19.7 - Diarrhea, unspecified Qualifiers: Diarrhea type: unspecified type Qualified Code(s): R19.7 - Diarrhea, unspecified Plan Most likely Acute Viral Gastroenteritis plan - The patient's symptoms of diarrhea, abdominal cramps, body aches, and fatigue, which began Wednesday night, are consistent with viral gastroenteritis. - A viral etiology is suspected given the recent illness in his and children, with norovirus being a possibility. - A COVID-19/influenza/RSV combination swab has been ordered to rule out other common viral causes, with results pending. - Recommended supportive care with the BRAT diet (bananas, rice, applesauce, toast) and maintaining hydration with fluids such as Gatorade to manage symptoms and prevent dehydration. - A work excuse note was provided for today and tomorrow. Orders: Orders SARS-CoV2/FLU/RSV Today R09.89 - Other specified symptoms and signs involving the circulatory and respiratory systems Coding Level of Care Code Est Pt Level 3 (61360) Diagnoses Diarrhea, unspecified type R19.7 Diarrhea type: unspecified type
--- OUTSIDE RECORDS SUMMARY | 2025-04-03 09:52 | XMS_ITS | Patient Health Record ---
Author Organization [facility] Address [address] [place] [address] Care Team Providers Care Hoof And Shoe Inspector Name Role Phone Malik Vazquez Primary Care Provider Unav ailable Black, Kacy Unavailable [phone] Allergies No Known Allergies Reason For Referral [...] Insured Coverage Start Date Coverage End Date [facility] [address] [place] [address] [phone] [id number] Kenneth Muñozon Self - patient is the insured Medical (General) History Medical History History ICD Code Anxiety Back,Hip,and Knee pain covid-19 Depression Headaches/Migraines High blood pressure Chicken pox Surgical History Surgery Date(Month/Year) rhinoplasty
== END 2025-04-03 09:46 | disposition home or self-care (01) ==
PROVIDERS: PCP Nurse Practitioner Family; Visit Provider Physician Assistant Medical
DX: R19.7 Diarrhea, unspecified (principal)

== ENCOUNTER 2025-04-03 08:54 | Outpatient (REF) | payer BC, SELFPAY ==
[2025-04-03 13:07] LABS: Resp Syncy Virus RNA Qual PCR NEGATIVE (Negative); SARS COV2 PCR INHOUSE NEGATIVE (Negative)
== END 2025-04-03 08:55 | disposition home or self-care (01) ==
LOC: HO.LAB 08:54
PROVIDERS: Physician Assistant Medical; PCP Nurse Practitioner Family
DX: R19.7 Diarrhea, unspecified (principal); R09.89 Other specified symptoms and signs involving the circulatory and respiratory systems; Z03.818 Encounter for observation for suspected exposure to other biological agents ruled out
CPT/HCPCS: 87637